=== PATIENT | male | born 1970 | race Caucasian/White ===

== ENCOUNTER 2018-09-26 11:27 | Inpatient (IN) ==
[2018-09-26] MEDS ORDERED: SODIUM CHLORIDE 0.9% 1000ML 1,000 ML IV SCH (12:00)
[2018-09-26 12:18] LABS: Appearance Urine Turbid (Clear); Bacteria Urine Automated Negative (Negative); Blood Urine 3+ (Negative); Epithelial Cell Urine Auto >30 /lpf (0-5); Glucose Urine UA 3+ (Negative); Ketones Urine Trace (Negative); Leukocyte Esterase Urine Trace (Negative); Nitrite Urine Positive (Negative); Protein Urine 4+ (Negative); Specific Gravity Urine 1.034 (1.000-1.030); Urobilinogen Urine Negative (Negative); pH Urine 5.5 (4.5-7.5)
[2018-09-26 12:22] LABS: Bilirubin Urine 3+ (Negative)
[2018-09-26 12:23] LABS: Color Urine Amber
[2018-09-26 12:24] LABS: Ictotest Urine Positive (Negative)
[2018-09-26 12:31] LABS: RBC Urine Automated >30 /hpf (0-4)
[2018-09-26 12:32] LABS: Cast Urine Automated >30 /lpf (0-5)
[2018-09-26] MEDS ORDERED: cefTRIAXone SODIUM 1,000 MG/50 ML BAG IV STA (12:48)
[2018-09-26] MEDS ORDERED: IBUPROFEN 200 MG TAB PO STA (12:48)
--- NOTE | 2018-09-26 13:07 | XRay Report ---
XR chest 1V portable HISTORY: 48 years-old Male eval for pna acute shortness of breath with cough and wheezing COMPARISON: None available TECHNIQUE: Portable AP view the chest FINDINGS: Cardiac silhouette appears to be within upper limits of normal in size, possibly projectional. No pne umothorax, pleural effusion, focal airspace consolidation or overt pulmonary edema. Degenerative phillips ges of the shoulders and spine. Mid thoracic dextroscoliosis. IMPRESSION: No acute process. The above report was generated using voice recognition software. It may contain grammatical, syntax o r spelling errors. Electronically signed by: Monty Weller M.D. 09/26/2018 1:06 PM
[2018-09-26 13:15] LABS: Hematocrit (blood only) 39.7 % (42-52); Mean Corpuscular Hgb Conc 35.3 g/dL (32-36); Mean Corpuscular Volume 86.5 fL (80-100); RDW Coefficient of Variation 13.5 % (11.5-14.5); Red Blood Count 4.59 M/uL (4.7-6.1); White Blood Count 4.53 K/uL (4.8-10.8)
[2018-09-26 13:31] LABS: Platelet Count 40 K/uL (130-400)
[2018-09-26 13:32] LABS: Albumin Globulin Ratio 0.6 (0.9-2); Albumin Level 2.3 gm/dl (3.4-5.0); BUN Creatinine Ratio 12.6 (10-20); Bilirubin,Total 5.2 mg/dl (0.2-1); Calcium 8.8 mg/dl (8.5-10.1); Creatinine Clr Calc Pharmacy 51.2 ml/min; Est GFR (African American) 44.8; Est GFR (Non-African American) 38.6; Globulin 4.2 gm/dl (2.5-4.0); Total Protein 6.5 gm/dl (6.4-8.2)
[2018-09-26 13:44] LABS: Potassium 4.2 mmol/L (3.5-5.1)
[2018-09-26] MEDS ORDERED: DOXYCYCLINE HYCLATE 100 MG in DEXTROSE 5% 100 ML IV STA (13:50)
[2018-09-26 13:53] LABS: Basophils # (auto) 0.03 K/uL (0-0.2); Basophils % (auto) 0.7 %; Lymphocytes % (auto) 13.2 %; Monocytes # (auto) 0.25 K/uL (0.11-0.59); Monocytes % (auto) 5.5 %; Neutrophils # (auto) 3.65 K/uL (1.4-6.5); Neutrophils % (auto) 80.6 %; Platelet Estimate Decreased (Normal)
--- NOTE | 2018-09-26 14:38 | CT Scan Report ---
ABDOMEN AND PELVIS CT WITHOUT CONTRAST CT DOSE: 802.08 mGy.cm HISTORY: Acute abdominal pain ABD pain TECHNIQUE: Multiaxial CT images of the abdomen and pelvis were performed without contrast. A dose lo wering technique was utilized adhering to the principles of ALARA. COMPARISON STUDY: Chest radiograph of same day FINDINGS: Mild cardiac megaly with trace pericardial effusion. Mildly prominent subcarinal and bilateral hilar lymph nodes. Bibasilar groundglass opacities are partially imaged. No pleural effusion. No pneumatosi s or pneumoperitoneum. Liver is mildly enlarged. Trace perihepatic ascites. Evaluation of the solid abdominal organs is limi deirdre without the use of IV contrast. Spleen is mildly enlarged, 14.0 cm. There is mild amount of infla mmatory stranding about the pancreatic head and proximal duodenum with trace free fluid extending int o the mesentery. Moderate wall thickening of the duodenum is also noted. Adrenal glands are unremarka ble. Mild nonspecific bilateral perinephric stranding. No renal or ureteral calculi or obstructive ur opathy. Mild prostamegaly with partial distention of the bladder and mild circumferential urinary abraham dder wall thickening. No aortic aneurysm. Scattered prominent nonenlarged periaortic lymph nodes. Mil dly enlarged left inguinal lymph node, 1.2 cm. Debris-filled distal esophagus which is mild wall thickening. No bowel obstruction. Terminal ileum a nd appendix appear normal. Soft tissues are unremarkable. Bones appear to be intact. Degenerative margaret nges of the spine, pelvis and hips. IMPRESSION: 1. Moderate circumferential wall thickening of the proximal duodenum with mild adjacent inflammatory stranding and trace free fluid. Additional edema surrounds the pancreatic head and uncinate process. This finding likely represents a primary duodenitis or alternatively may reflect reactive change from a primary pancreatitis. Currently with lipase level and clinical exam. 2. Bibasilar groundglass densities suggest infectious or inflammatory pneumonitis. 3. Mildly prominent hilar and subcarinal adenopathy, likely reactive. 4. Cardiomegaly with trace pericardial effusion. 5. Prostamegaly with urinary bladder wall thickening suggestive of chronic bladder outlet obstruction . 6. Splenomegaly. 7. Additional findings as above. Electronically signed by: Monty Weller M.D. 09/26/2018 2:37 PM
[2018-09-26] MEDS ORDERED: ACETAMINOPHEN 500 MG TAB PO STA (15:52)
--- NOTE | 2018-09-26 16:26 | History & Physical Report ---
Date of Service September 26, 2018 Assessment & Plan (1) Sepsis: This is a 48yo M with a PMH of DM I on insulin pump and HTN who presents with abdominal bloating, fever and fatigue x 4 days and was found to have sepsis 2/2 suspected anaplasmosis and possible UTI. -Febrile at 39.2 C and tachycardic at 127 -Suspected anaplasmosis, possible UTI -Leukopenia in setting of anaplasmosis. Lactate within normal limits -Blood and urine cultures pending -Started empirically on Rocephin and doxy (2) Anaplasmosis: History of tick bites, most recently at the beginning of July -Leukopenic at 4.5 and thrombocytopenic at 40 -Peripheral blood smear with rare inclusion suspicious for anaplasma -Anaplasma DNA and ehlrlichia serology ordered as well as blood and urine cultures -Transaminitis, acute kidney injury and diffuse inflammation on CT abd/pelvis including possible duodenitis, pancreatitis, infectious or inflammatory pneumonitis, mildly prominent hilar and subcarinal adenopathy, likely reactive, cardiomegaly with trace pericardial effusion and splenomegaly. -Continue Doxycycline. Follow serology -ID consult (3) Transaminitis: Tbili of 5.2 with direct bili 4.1, indicating conjugated etiology -AST 137, ALT: 177, Alk phos: 506 (normal LFTS as of Nov 2017). INR wnl -Likely due to anaplasmosis but need to evaluate for other causes -GB ultrasound with no acute sonographic abnormality is identified in the right upper quadrant. No gallstones are seen. Hepatomegaly and hepatic steatosis. -Discussed with GI: Acute hepatitis panel, RANDAL, AMA, ASMA ordered -GI to evaluate patient tomorrow AM (4) Complicated UTI (urinary tract infection): UA with trace nitrate and leuk esterase -No urinary symptoms -CT abd/pelvis with mind non-specific perinephric stranding -Treat empirically with Rocepin, follow cultures (5) EUSEBIA (acute kidney injury): Cr elevated at 2.01 (baseline Cr low-mid 1s) -In setting of anaplasmosis, poor PO intake -IV fluids. Avoid nephrotoxic agents -Monitor BMP (6) Type 1 diabetes: Ordered a1c -Has insulin pump at home -Glycemic consult for pump management (7) HTN (hypertension): Mildly elevated BP -Holding losartan in setting of EUSEBIA -Will add PRN agent (8) Allergic rhinitis: Singulair, Zyrtec, Flonase DVT Ppx: SCDs in setting of acute thrombocytopenia Code status: FULL PCP: Akash Dispo: Admitted to telemetry. Plan to return home once medically stable. Patient seen in collaboration with Dr. Nolan. Please see addendum. History of Present Illness Chief Complaint: abdominal bloating , fatigue Primary Care Provider: Ziyad Bustos MD This is a 48yo M with a PMH of DM I on insulin pump and HTN who presents with abdominal bloating, fever and fatigue x 4 days. Patient was in normal state of health until this past Sunday, when he developed abdominal bloating, subjective fever and chills and fatigue. Denies any kendall abdominal pain but just feels a fullness. Has had bowel movements but they have been smaller than normal. Poor p.o. intake and reduced appetite. In the past 3 days, endorses 2 episodes of bilious vomit. Denies any hematemesis, melena or hematochezia. Does live in the [facility] and endorses multiple tick bites, the most recent occurring at the beginning of July. Denies rash, but states that when nursing evaluated him today they noticed a rash on his lower extremities. Denies any history of liver disease or gallbladder disease. Denies lightheadedness, headache, chest pain, palpitations, shortness of breath, abdominal pain, dysuria, hematuria or constipation. Patient found to be febrile at 39 C and tachycardic at 127. Platelets low at 40, creatinine elevated at 2.01 (baseline mid-1s), tbili of 5.2, AST of 137, ALT of 177, alk phos of 506. Lipase wnl. Peripheral blood smear with rare inclusion suspicious for anaplasma. Anaplasma DNA and ehlrlichia serology ordered as well as blood and urine cultures. Started on Rocephin and doxy in the ED. CT abd/pelvis with diffuse inflammation including evidence of piossible duodenitis, pancreatitis, infectious or inflammatory pneumonitis, mildly prominent hilar and subcarinal adenopathy, likely reactive, cardiomegaly with trace pericardial effusion and splenomegaly. Allergies Allergy/AdvReac Type Severity Reaction Status Date / Time Penicillins Allergy Severe Hives Unverified 09/26/18 12:26 Home Medications Home Medications Medication Instructions Recorded Confirmed Type acetaminophen [Tylenol] 325 mg PO Q6H PRN 09/26/18 09/26/18 History apple cider vinegar 0 mg PO QAM 09/26/18 09/26/18 History benzonatate [Tessalon Perles] 100 mg PO TID PRN 09/26/18 09/26/18 History cetirizine [Zyrtec] 10 mg PO DAILY PRN 09/26/18 09/26/18 History fluticasone propionate [Flonase 2 spray INTRANASAL DAILY 09/26/18 09/26/18 History Allergy Relief] losartan 100 mg PO DAILY 09/26/18 09/26/18 History montelukast 10 mg PO QAM 09/26/18 09/26/18 History multivitamin 1 tab PO QAM 09/26/18 09/26/18 History ondansetron HCl [Zofran] 4 mg PO Q8H PRN 09/26/18 09/26/18 History simvastatin 20 mg PO PM 09/26/18 09/26/18 History subcutaneous insulin pump [M[employer]Med 09/26/18 09/26/18 History 530G Insulin Pump] Past Med/Surg History Medical History Allergic rhinitis (Chronic) HTN (hypertension) (Chronic) Insulin dependent diabetes mellitus (Chronic) Surgical History H/O eye surgery (Chronic) Family History Other Colorectal cancer Coronary heart disease Cisse syndrome Social History Preferred Language: Ukrainian Communication Ability: Effective Long Lines Operator Required: No Beliefs That Will Affect Care: None Current Living Situation: Spouse Other Information That Helps Us Care for You: No Feels Safe at Home: Yes Safety Concerns: Feels Safe At This Time Smoking Status: Never smoker Hx Alcohol Use: Yes Alcohol type: beer Alcohol Intake Frequency Comment: 3x / week Hx Substance Use: No Review of Systems Review of Systems: At least ten systems reviewed and negative except as noted in the HPI. Physical Exam Physical Exam: General Appearance: WD/WN, no apparent distress, appears acutely ill Head: normocephalic, atraumatic Eyes: normal inspection, non-injected sclera, PERRL, EOMI ENT: hearing grossly normal, pharynx normal (dry mucous membranes) Neck: supple, no JVD, no adenopathy Respiratory/Chest: lungs clear to auscultation. No wheezes, rales or rhonci. No respiratory distress or accessory muscle use Cardiovascular: tachycardic, regular rhythm, no murmur, normal peripheral pulses, no BLE edema Abdomen/GI: normal bowel sounds, distended but soft, non-tender to palpation, no guarding Extremities/Musculoskelatal: normal inspection, no calf tenderness, normal capillary refill, no pedal edema Neurologic/Psych: alert, normal mood/affect, oriented x 3 Skin: normal color, warm/dry. BLE with petechial rash. No edema or open wounds. Results & Data Vital Signs (Past 12 Hours) Vital Signs Temp Pulse Resp BP Pulse Ox 09/26/18 15:40 39.2 C H 124 H 31 H 97 09/26/18 15:31 128 H 25 H 98 09/26/18 15:30 129 H 25 H 163/91 H 97 09/26/18 15:20 125 H 28 H 97 09/26/18 15:10 126 H 33 H 97 09/26/18 15:01 126 H 19 98 09/26/18 15:00 125 H 20 171/96 H 97 09/26/18 14:50 123 H 30 H 97 09/26/18 14:40 123 H 30 H 97 09/26/18 14:31 122 H 26 H 98 09/26/18 14:30 123 H 29 H 165/91 H 97 09/26/18 14:28 129 H 17 09/26/18 14:10 124 H 28 H 97 09/26/18 14:01 126 H 24 98 09/26/18 14:00 124 H 32 H 155/90 H 98 09/26/18 13:50 123 H 20 168/94 H 90 09/26/18 13:30 123 H 27 H 94 09/26/18 13:01 130 H 18 92 09/26/18 13:00 130 H 25 H 144/88 H 94 09/26/18 12:40 125 H 28 H 94 09/26/18 12:39 124 H 26 H 93 09/26/18 12:34 39.3 C H 126 H 27 H 131/82 94 09/26/18 12:28 123 H 29 H 92 09/26/18 11:36 38.2 C H 127 H 18 166/94 H 94 Laboratory Results Short CBC 09/26/18 Range/Units 12:38 WBC 4.53 L (4.8-10.8) K/uL Hgb 14.0 (14.0-18.0) g/dL Hct 39.7 L (42-52) % Plt Count 40 L (130-400) K/uL BMP 09/26/18 12:38 Sodium 134 L Potassium 4.2 Chloride 100 Carbon Dioxide 26 BUN 25 H Creatinine 2.01 H Glucose 224 H Calcium 8.8 Liver Function 09/26/18 09/26/18 Range/Units 12:38 12:38 Total Bilirubin 5.2 H (0.2-1) mg/dl Direct Bilirubin 4.1 H (0-0.2) mg/dl AST 137 H (15-37) U/L ALT 177 H (12-78) U/L Alkaline Phosphatase 506 H (45-117) U/L Albumin 2.3 L (3.4-5.0) gm/dl Urine 09/26/18 Range/Units 11:56 Urine Color [place] Urine Appearance Turbid A (Clear) Urine pH 5.5 (4.5-7.5) Ur Specific [place] 1.034 H (1.000-1.030) Urine Protein 4+ H (Negative) Urine Glucose (UA) 3+ H (Negative) Diagnostic Findings CXR: IMPRESSION: No acute process. CT abd/pelvis: IMPRESSION: 1. Moderate circumferential wall thickening of the proximal duodenum with mild adjacent inflammatory stranding and trace free fluid. Additional edema surrounds the pancreatic head and uncinate process. This finding likely represents a primary duodenitis or alternatively may reflect reactive change from a primary pancreatitis. Currently with lipase level and clinical exam. 2. Bibasilar ground glass densities suggest infectious or inflammatory pneumonitis. 3. Mildly prominent hilar and subcarinal adenopathy, likely reactive. 4. Cardiomegaly with trace pericardial effusion. 5. Prostamegaly with urinary bladder wall thickening suggestive of chronic bladder outlet obstruction. 6. Splenomegaly. 7. Additional findings as above. Gallbladder ultrasound: IMPRESSION: 1. No acute sonographic abnormality is identified in the right upper quadrant. No gallstones are seen. 2. Hepatomegaly and hepatic steatosis. ECG Rhythm: sinus tachycardia Supervising Physician Co-Signing Physician Notes Patient is a 48-year-old male with history of type 1 diabetes mellitus and other problems presents with history of abdominal bloating, fever and generalized weakness since 4 days duration. Reports chronic dry cough which is unchanged. States having poor oral intake, appetite secondary to abdominal bloating. Also reports 2 episodes of nausea, vomiting. He noticed petechial rash on bilateral lower extremities today. Denies any recent tick bite. Denies any chest pain, shortness of breath, dysuria, hematuria, diarrhea. Patient was found to be febrile, tachycardic, tachypneic. Labs suggestive of thrombocytopenia, leukopenia. EUSEBIA, creatinine elevated at 2.01. Normal lactate levels. UA is abnormal. Labs also suggestive of transaminitis. Peripheral blood smear suggestive of Anaplasmosis. Serology currently pending. Normal lipase levels. CT abdomen suggestive of diffuse inflammatory findings suggestive of possible duodenitis, pancreatitis, pneumonitis, hepatosplenomegaly, reactive lymphadenopathy, perinephric stranding. On exam patient is obese, no apparent distress, normocephalic atraumatic, lungs-decreased breath sounds, clear to auscultation, S1-S2, tachycardia, abdomen soft, distended, nontender, no pedal e [place], particular rash on bilateral lower extremities. Patient is admitted for management of anaplasmosis. Plan to start on doxycycline. Also to rule out UTI. Empirically started on Rocephin. Agree with IV fluids, holding losartan due to EUSEBIA. Check A1c. Also check hepatitis panel, RANDAL, AMA, ASMA. GI and ID consulted. Follow-up cultures. I personally reviewed the record. Patient is interviewed and examined at bedside. Patient's care is coordinated with Irasema Brock PA-C. Please refer to the documentation above for details of patient's presentation and for discussion of other issues.
--- NOTE | 2018-09-26 17:10 | Emergency Department Note ---
Entered by Andreina Johnson acting as a scribe for Bautista Lewis MD History of Present Illness General Chief complaint: Abdominal Pain Stated complaint: STOMACH PROBLEM,SLEEPING 12-14 HRS, NO ENERGY Source: patient and family (spouse) History of Present Illness Provider complaint: abdominal pain Onset (ago): day(s) Location: abdomen Pain Consistency: + constant Maximum Pain Intensity: 5 Quality: + dull Relieved By: + medication (nausea medication) Associated symptoms: + denies other symptoms (diarrhea, nose bleed, bruising, bloody stools), + fever/chills (fever) and + nausea/vomiting The patient is a 48 year old male who presents to the Emergency department with complaints of constant abdominal pain. The patient states that he has had a dull feeling stomach ache that started 3 days ago. He reports that he has been vomiting but has not had diarrhea. He also reports that his temperature has been at 99.4 and states that he feels febrile when the Tylenol wears off. The patient states that he has also had an intermittent headache. He states that he has not been able to eat much over the last several days. He also reports that he has not had a bowel movement in several days which is unusual for him. He states that he was given nausea medication that helped to alleviate his symptoms. Per spouse, the patient sleeps 14-16 hours per day for years, but has worsened within the past 2 months. The patient states that he had lab work done a few days prior at [facility] and his platelet count was extremely low. The patient denies bruising, nose bleed, and black or bloody stool. The patient reports that he is treated for hypertension and diabetes. Home Medications Home Medications Medication Instructions Recorded Confirmed Type acetaminophen [Tylenol] 325 mg PO Q6H PRN 09/26/18 09/26/18 History apple cider vinegar 0 mg PO QAM 09/26/18 09/26/18 History benzonatate [Tessalon Perles] 100 mg PO TID PRN 09/26/18 09/26/18 History cetirizine [Zyrtec] 10 mg PO DAILY PRN 09/26/18 09/26/18 History fluticasone propionate [Flonase 2 spray INTRANASAL DAILY 09/26/18 09/26/18 History Allergy Relief] losartan 100 mg PO DAILY 09/26/18 09/26/18 History montelukast 10 mg PO QAM 09/26/18 09/26/18 History multivitamin 1 tab PO QAM 09/26/18 09/26/18 History ondansetron HCl [Zofran] 4 mg PO Q8H PRN 09/26/18 09/26/18 History simvastatin 20 mg PO PM 09/26/18 09/26/18 History subcutaneous insulin pump [MiniMed 09/26/18 09/26/18 History 530G Insulin Pump] Allergies Allergy/AdvReac Type Severity Reaction Status Date / Time Penicillins Allergy Severe Hives Unverified 09/26/18 12:26 Past Med/Surg History Social History Current Living Situation: Spouse Feels Safe at Home: Yes Smoking Status: Former smoker Hx Alcohol Use: Yes Alcohol type: beer Alcohol Intake Frequency Comment: 3x / week Hx Substance Use: No Review of Systems See HPI for pertinent positives & negatives. and A total of 10 systems reviewed and were otherwise negative Physical Exam Vital Signs Vital Signs - 24 hr 09/26/18 11:36 09/26/18 12:28 09/26/18 12:34 Temperature 38.2 C H 39.3 C H Temperature Source Oral Sepsis Recent Fever Within 48 Hours No Sepsis New/Unexplained Change in Mental Status No Sepsis Action Taken by Nursing No Action Required Pulse Rate 127 H 123 H 126 H Pulse Rate from SpO2 Sensor 125 H Pulse Rhythm Irregular Respiratory Rate 18 29 H 27 H Blood Pressure 166/94 H 131/82 Blood Pressure Mean 118 98 Pulse Oximetry 94 92 94 Oxygen Delivery Method Room Air 09/26/18 12:39 09/26/18 12:40 09/26/18 13:00 Temperature Temperature Source Sepsis Recent Fever Within 48 Hours Sepsis New/Unexplained Change in Mental Status Sepsis Action Taken by Nursing Pulse Rate 124 H 125 H 130 H Pulse Rate from SpO2 Sensor 125 H 124 H 131 H Pulse Rhythm Respiratory Rate 26 H 28 H 25 H Blood Pressure 144/88 H Blood Pressure Mean 106 Pulse Oximetry 93 94 94 Oxygen Delivery Method 09/26/18 13:01 09/26/18 13:30 09/26/18 13:50 Temperature Temperature Source Sepsis Recent Fever Within 48 Hours Sepsis New/Unexplained Change in Mental Status Sepsis Action Taken by Nursing Pulse Rate 130 H 123 H 123 H Pulse Rate from SpO2 Sensor 131 H 123 H 125 H Pulse Rhythm Respiratory Rate 18 27 H 20 Blood Pressure 168/94 H Blood Pressure Mean 118 Pulse Oximetry 92 94 90 Oxygen Delivery Method 09/26/18 14:00 09/26/18 14:01 09/26/18 14:10 Temperature Temperature Source Sepsis Recent Fever Within 48 Hours Sepsis New/Unexplained Change in Mental Status Sepsis Action Taken by Nursing Pulse Rate 124 H 126 H 124 H Pulse Rate from SpO2 Sensor 125 H 125 H 122 H Pulse Rhythm Respiratory Rate 32 H 24 28 H Blood Pressure 155/90 H Blood Pressure Mean 111 Pulse Oximetry 98 98 97 Oxygen Delivery Method 09/26/18 14:28 09/26/18 14:30 09/26/18 14:31 Temperature Temperature Source Sepsis Recent Fever Within 48 Hours Sepsis New/Unexplained Change in Mental Status Sepsis Action Taken by Nursing Pulse Rate 129 H 123 H 122 H Pulse Rate from SpO2 Sensor 123 H 121 H Pulse Rhythm Respiratory Rate 17 29 H 26 H Blood Pressure 165/91 H Blood Pressure Mean 115 Pulse Oximetry 97 98 Oxygen Delivery Method 09/26/18 14:40 09/26/18 14:50 09/26/18 15:00 Temperature Temperature Source Sepsis Recent Fever Within 48 Hours Sepsis New/Unexplained Change in Mental Status Sepsis Action Taken by Nursing Pulse Rate 123 H 123 H 125 H Pulse Rate from SpO2 Sensor 123 H 123 H 124 H Pulse Rhythm Respiratory Rate 30 H 30 H 20 Blood Pressure 171/96 H Blood Pressure Mean 121 Pulse Oximetry 97 97 97 Oxygen Delivery Method 09/26/18 15:01 09/26/18 15:10 09/26/18 15:20 Temperature Temperature Source Sepsis Recent Fever Within 48 Hours Sepsis New/Unexplained Change in Mental Status Sepsis Action Taken by Nursing Pulse Rate 126 H 126 H 125 H Pulse Rate from SpO2 Sensor 127 H 125 H 125 H Pulse Rhythm Respiratory Rate 19 33 H 28 H Blood Pressure Blood Pressure Mean Pulse Oximetry 98 97 97 Oxygen Delivery Method 09/26/18 15:30 09/26/18 15:31 09/26/18 15:40 Temperature 39.2 C H Temperature Source Sepsis Recent Fever Within 48 Hours Sepsis New/Unexplained Change in Mental Status Sepsis Action Taken by Nursing Pulse Rate 129 H 128 H 124 H Pulse Rate from SpO2 Sensor 129 H 128 H 125 H Pulse Rhythm Respiratory Rate 25 H 25 H 31 H Blood Pressure 163/91 H Blood Pressure Mean 115 Pulse Oximetry 97 98 97 Oxygen Delivery Method 09/26/18 16:00 09/26/18 16:01 09/26/18 16:30 Temperature Temperature Source Sepsis Recent Fever Within 48 Hours Sepsis New/Unexplained Change in Mental Status Sepsis Action Taken by Nursing Pulse Rate 121 H 119 H 121 H Pulse Rate from SpO2 Sensor 121 H 120 H 122 H Pulse Rhythm Respiratory Rate 26 H 24 26 H Blood Pressure 144/84 H 146/86 H Blood Pressure Mean 104 106 Pulse Oximetry 96 96 96 Oxygen Delivery Method 09/26/18 16:31 Temperature Temperature Source Sepsis Recent Fever Within 48 Hours Sepsis New/Unexplained Change in Mental Status Sepsis Action Taken by Nursing Pulse Rate 121 H Pulse Rate from SpO2 Sensor 121 H Pulse Rhythm Respiratory Rate 20 Blood Pressure Blood Pressure Mean Pulse Oximetry 97 Oxygen Delivery Method Constitutional: Vital signs reviewed. Eyes: Pupils are equal round reactive to light. Conjunctiva are noninjected. ENT: Pharynx is clear without erythema or exudate. Mucous membranes are moist. Neck supple without meningeal signs. Respiratory: Clear to auscultation bilaterally. Breath sounds are equal bilaterally. Cardiovascular: Tachycardic rate and regular rhythm. No rubs or gallops. GI: Soft and nontender. Distended. Bowel sounds are present. Insulin pump in place. Musculoskeletal: No peripheral edema. No lower extremity tenderness. Integumentary: No cyanosis. Neurological: The patient is awake and alert. No focal deficits. Psychiatric: Normal affect. Course 1145: The patient was evaluated in room. A history and physical were performed. 1200: The patient had blood work done on the which showed that he had a creatinine of 1.6, a platelet count of 31, and a negative Lyme test. 1250: I checked on the patient. He is now febrile and coughing. I talked to him about his UTI. 1314: I reassessed the patient. I talked to him and his about his test results. 1456: I updated the patient who verbalized agreement and understanding of the treatment plan. 1458: I discussed the patient's case with Irasema Durant, admitting to Dr. Nolan, who will evaluate the patient for further management. Consultations Consultation #1: Irasema Durant Time: 14:58 Administered Medications Discontinued Medications Acetaminophen (Tylenol) 500 mg PO NOW STA Stop: 09/26/18 15:53 Last Admin: 09/26/18 15:59 Dose: 500 mg Documented by: [id number] Sodium Chloride (Nss 1000ml) 1,000 mls @ 999 mls/hr IV .Q1H1M LAMONTE Stop: 09/26/18 13:00 Last Infusion: 09/26/18 15:56 Dose: 0 mls/hr Documented by: [id number] Admin: 09/26/18 12:47 Dose: 999 mls/hr Documented by: [id number] Ceftriaxone Sodium (Rocephin) 1,000 mg in 50 mls @ 100 mls/hr IV NOW STA Stop: 09/26/18 13:17 Last Infusion: 09/26/18 13:59 Dose: 0 mls/hr Documented by: [id number] Admin: 09/26/18 13:30 Dose: 100 mls/hr Documented by: [id number] Doxycycline Hyclate 100 mg/ (Dextrose) 110 mls @ 50 mls/hr IV NOW STA Stop: 09/26/18 16:01 Last Admin: 09/26/18 15:15 Dose: 50 mls/hr Documented by: [id number] Ibuprofen (Advil) 200 mg PO NOW STA Stop: 09/26/18 12:49 Last Admin: 09/26/18 13:30 Dose: 200 mg Documented by: [id number] Medical Decision Making Differential Diagnosis Differentials include bowel obstruction, gastritis, pancreatitis, TTP, irritable bowel syndrome and anemia. Medical Records Attestation: I reviewed the patient's medical records. Home Medications Current Medication List: was personally reviewed by me Laboratory Data Attestation: I reviewed the patient's lab results. Result diagrams: 09/26/18 12:38 09/26/18 12:38 Lab Results 09/26/18 09/26/18 09/26/18 Range/Units 11:56 11:56 12:38 WBC (4.8-10.8) K/uL RBC (4.7-6.1) M/uL Hgb (14.0-18.0) g/dL Hct (42-52) % MCV (80-100) fL MCH (25-34) pg MCHC (32-36) g/dL RDW Std Deviation (36.4-46.3) fL RDW Coeff of Negr[place] (11.5-14.5) % Plt Count (130-400) K/uL Immature Gran % (Auto) % Neut % (Auto) % Lymph % (Auto) % [place] % (Auto) % Eos % (Auto) % Baso % (Auto) % Immature Gran # (Auto) (0.00-0.02) K/uL Neut # (Auto) (1.4-6.5) K/uL Lymph # (Auto) (1.2-3.4) K/uL [place] # (Auto) (0.11-0.59) K/uL Eos # (Auto) (0-0.5) K/uL Baso # (Auto) (0-0.2) K/uL Blood Smear Review Platelet Estimate (Normal) PT (9.0-12.0) Seconds INR (0.9-1.1) Sodium 134 L (136-145) mmol/L Potassium 4.2 (3.5-5.1) mmol/L Chloride 100 (98-107) mmol/L Carbon Dioxide 26 (21-32) mmol/L Anion Gap 8.0 (3-11) BUN 25 H (7-18) mg/dl Creatinine 2.01 H (0.6-1.4) mg/dl Est Cr Clr Drug Dosing 51.2 ml/min Est GFR ( Amer) 44.8 Est GFR (Non-Af Amer) 38.6 BUN/Creatinine Ratio 12.6 (10-20) Glucose 224 H (70-99) mg/dl POC Lactic Acid Dileep (0.90-1.70) mmol/L Calcium 8.8 (8.5-10.1) mg/dl Total Bilirubin 5.2 H (0.2-1) mg/dl Direct Bilirubin (0-0.2) mg/dl AST 137 H (15-37) U/L ALT 177 H (12-78) U/L Alkaline Phosphatase 506 H (45-117) U/L Total Protein 6.5 (6.4-8.2) gm/dl Albumin 2.3 L (3.4-5.0) gm/dl Globulin 4.2 H (2.5-4.0) gm/dl Albumin/Globulin Ratio 0.6 L (0.9-2) Lipase 83 (73-393) U/L Urine Color Genesis Urine Appearance Turbid A (Clear) Urine pH 5.5 (4.5-7.5) POC Urine pH 5 (4.5-7.5) Ur Specific [place] 1.034 H (1.000-1.030) Urine Protein 4+ H (Negative) POC Urine Protein 3+ H (Negative) Urine Glucose (UA) 3+ H (Negative) POC Ur Glucose (UA) 1000 H (Normal) Urine Ketones Trace H (Negative) POC Urine Ketones Negative (Negative) Urine Blood 3+ H (Negative) POC Urine Blood 250 H (Negative) Urine Nitrite Positive A (Negative) POC Urine Nitrite Negative (Negative) Urine Bilirubin 3+ H (Negative) POC Urine Bilirubin 3+ H (Negative) Urine Urobilinogen Negative (Negative) POC Urine Urobilinogen 8 H (Normal) Ur Leukocyte Esterase Trace H (Negative) POC U Leukocyte Esteras Trace H (Negative) Urine WBC (Auto) 10-30 H (0-5) /hpf Urine RBC (Auto) >30 H (0-4) /hpf U Hyaline Cast (Auto) >30 H (0-5) /lpf U Epithel Cells (Auto) >30 H (0-5) /lpf Urine Bacteria (Auto) Negative (Negative) Ur Renal Epithelial Cell Not Reportable Granular Casts 10-20 H (0) /lpf Urine Yeast Not Reportable 09/26/18 09/26/18 09/26/18 Range/Units 12:38 12:38 12:38 WBC 4.53 L (4.8-10.8) K/uL RBC 4.59 L (4.7-6.1) M/uL Hgb 14.0 (14.0-18.0) g/dL Hct 39.7 L (42-52) % MCV 86.5 (80-100) fL MCH 30.5 (25-34) pg MCHC 35.3 (32-36) g/dL RDW Std Deviation 43.0 (36.4-46.3) fL RDW Coeff of [place]grito 13.5 (11.5-14.5) % Plt Count 40 L (130-400) K/uL Immature Gran % (Auto) 0.0 % Neut % (Auto) 80.6 % Lymph % (Auto) 13.2 % [place] % (Auto) 5.5 % Eos % (Auto) 0.0 % Baso % (Auto) 0.7 % Immature Gran # (Auto) 0.00 (0.00-0.02) K/uL Neut # (Auto) 3.65 (1.4-6.5) K/uL Lymph # (Auto) 0.60 L (1.2-3.4) K/uL [place] # (Auto) 0.25 (0.11-0.59) K/uL Eos # (Auto) 0.00 (0-0.5) K/uL Baso # (Auto) 0.03 (0-0.2) K/uL Blood Smear Review Platelet Estimate Decreased L (Normal) PT 10.0 (9.0-12.0) Seconds INR 1.0 (0.9-1.1) Sodium (136-145) mmol/L Potassium (3.5-5.1) mmol/L Chloride (98-107) mmol/L Carbon Dioxide (21-32) mmol/L Anion Gap (3-11) BUN (7-18) mg/dl Creatinine (0.6-1.4) mg/dl Est Cr Clr Drug Dosing ml/min Est GFR ( Amer) Est GFR (Non-Af Amer) BUN/Creatinine Ratio (10-20) Glucose (70-99) mg/dl POC Lactic Acid Dileep (0.90-1.70) mmol/L Calcium (8.5-10.1) mg/dl Total Bilirubin (0.2-1) mg/dl Direct Bilirubin 4.1 H (0-0.2) mg/dl AST (15-37) U/L ALT (12-78) U/L Alkaline Phosphatase (45-117) U/L Total Protein (6.4-8.2) gm/dl Albumin (3.4-5.0) gm/dl Globulin (2.5-4.0) gm/dl Albumin/Globulin Ratio (0.9-2) Lipase (73-393) U/L Urine Color Urine Appearance (Clear) Urine pH (4.5-7.5) POC Urine pH (4.5-7.5) Ur Specific [place] (1.000-1.030) Urine Protein (Negative) POC Urine Protein (Negative) Urine Glucose (UA) (Negative) POC Ur Glucose (UA) (Normal) Urine Ketones (Negative) POC Urine Ketones (Negative) Urine Blood (Negative) POC Urine Blood (Negative) Urine Nitrite (Negative) POC Urine Nitrite (Negative) Urine Bilirubin (Negative) POC Urine Bilirubin (Negative) Urine Urobilinogen (Negative) POC Urine Urobilinogen (Normal) Ur Leukocyte Esterase (Negative) POC U Leukocyte Esteras (Negative) Urine WBC (Auto) (0-5) /hpf Urine RBC (Auto) (0-4) /hpf U Hyaline Cast (Auto) (0-5) /lpf U Epithel Cells (Auto) (0-5) /lpf Urine Bacteria (Auto) (Negative) Ur Renal Epithelial Cell Granular Casts (0) /lpf Urine Yeast 09/26/18 Range/Units 13:19 WBC (4.8-10.8) K/uL RBC (4.7-6.1) M/uL Hgb (14.0-18.0) g/dL Hct (42-52) % MCV (80-100) fL MCH (25-34) pg MCHC (32-36) g/dL RDW Std Deviation (36.4-46.3) fL RDW Coeff of [place]grito (11.5-14.5) % Plt Count (130-400) K/uL Immature Gran % (Auto) % Neut % (Auto) % Lymph % (Auto) % [place] % (Auto) % Eos % (Auto) % Baso % (Auto) % Immature Gran # (Auto) (0.00-0.02) K/uL Neut # (Auto) (1.4-6.5) K/uL Lymph # (Auto) (1.2-3.4) K/uL [place] # (Auto) (0.11-0.59) K/uL Eos # (Auto) (0-0.5) K/uL Baso # (Auto) (0-0.2) K/uL Blood Smear Review Platelet Estimate (Normal) PT (9.0-12.0) Seconds INR (0.9-1.1) Sodium (136-145) mmol/L Potassium (3.5-5.1) mmol/L Chloride (98-107) mmol/L Carbon Dioxide (21-32) mmol/L Anion Gap (3-11) BUN (7-18) mg/dl Creatinine (0.6-1.4) mg/dl Est Cr Clr Drug Dosing ml/min Est GFR ( Amer) Est GFR (Non-Af Amer) BUN/Creatinine Ratio (10-20) Glucose (70-99) mg/dl POC Lactic Acid Dileep 1.54 (0.90-1.70) mmol/L Calcium (8.5-10.1) mg/dl Total Bilirubin (0.2-1) mg/dl Direct Bilirubin (0-0.2) mg/dl AST (15-37) U/L ALT (12-78) U/L Alkaline Phosphatase (45-117) U/L Total Protein (6.4-8.2) gm/dl Albumin (3.4-5.0) gm/dl Globulin (2.5-4.0) gm/dl Albumin/Globulin Ratio (0.9-2) Lipase (73-393) U/L Urine Color Urine Appearance (Clear) Urine pH (4.5-7.5) POC Urine pH (4.5-7.5) Ur Specific [place] (1.000-1.030) Urine Protein (Negative) POC Urine Protein (Negative) Urine Glucose (UA) (Negative) POC Ur Glucose (UA) (Normal) Urine Ketones (Negative) POC Urine Ketones (Negative) Urine Blood (Negative) POC Urine Blood (Negative) Urine Nitrite (Negative) POC Urine Nitrite (Negative) Urine Bilirubin (Negative) POC Urine Bilirubin (Negative) Urine Urobilinogen (Negative) POC Urine Urobilinogen (Normal) Ur Leukocyte Esterase (Negative) POC U Leukocyte Esteras (Negative) Urine WBC (Auto) (0-5) /hpf Urine RBC (Auto) (0-4) /hpf U Hyaline Cast (Auto) (0-5) /lpf U Epithel Cells (Auto) (0-5) /lpf Urine Bacteria (Auto) (Negative) Ur Renal Epithelial Cell Granular Casts (0) /lpf Urine Yeast Imaging Data Attestation: I personally reviewed and interpreted this imaging study as follows: Radiologist's Impression: Radiology results as stated below per my review and the radiologist's interpretation: XR chest 1V portable HISTORY: 48 years-old Male eval for pna acute shortness of breath with cough and wheezing COMPARISON: None available TECHNIQUE: Portable AP view the chest FINDINGS: Cardiac silhouette appears to be within upper limits of normal in size, possibly projectional. No pneumothorax, pleural effusion, focal airspace consolidation or overt pulmonary edema. Degenerative changes of the shoulders and spine. Mid thoracic dextroscoliosis. IMPRESSION: No acute process. The above report was generated using voice recognition software. It may contain grammatical, syntax or spelling errors. Electronically signed by: Monty Weller M.D. 09/26/2018 1:06 PM ABDOMEN AND PELVIS CT WITHOUT CONTRAST CT DOSE: 802.08 mGy.cm HISTORY: Acute abdominal pain ABD pain TECHNIQUE: Multiaxial CT images of the abdomen and pelvis were performed without contrast. A dose lowering technique was utilized adhering to the principles of ALARA. COMPARISON STUDY: Chest radiograph of same day FINDINGS: Mild cardiac megaly with trace pericardial effusion. Mildly prominent subcarinal and bilateral hilar lymph nodes. Bibasilar groundglass opacities are partially imaged. No pleural effusion. No pneumatosis or pneumoperitoneum. Liver is mildly enlarged. Trace perihepatic ascites. Evaluation of the solid ab dominal organs is limited without the use of IV contrast. Spleen is mildly enlarged, 14.0 cm. There is mild amount of inflammatory stranding about the pancreatic head and proximal duodenum with trace free fluid extending into the mesentery. Moderate wall thickening of the duodenum is also noted. Adrenal glands are unremarkable. Mild nonspecific bilateral perinephric stranding. No renal or ureteral calculi or obstructive uropathy. Mild prostamegaly with partial distention of the bladder and mild circumferential urinary bladder wall thickening. No aortic aneurysm. Scattered prominent nonenlarged periaortic lymph nodes. Mildly enlarged left inguinal lymph node, 1.2 cm. Debris-filled distal esophagus which is mild wall thickening. No bowel obstruction. Terminal ileum and appendix appear normal. Soft tissues are unremarkable. Bones appear to be intact. Degenerative changes of the spine, pel vis and hips. IMPRESSION: 1. Moderate circumferential wall thickening of the proximal duodenum with mild adjacent inflammatory stranding and trace free fluid. Additional edema surrounds the pancreatic head and uncinate process. This finding likely represents a primary duodenitis or alternatively may reflect reactive change from a primary pancreatitis. Currently with lipase level and clinical exam. 2. Bibasilar groundglass densities suggest infectious or inflammatory pneumonitis. 3. Mildly prominent hilar and subcarinal adenopathy, likely reactive. 4. Cardiomegaly with trace pericardial effusion. 5. Prostamegaly with urinary bladder wall thickening suggestive of chronic bladder outlet obstruction. 6. Splenomegaly. 7. Additional findings as above. Electronically signed by: Monty Weller M.D. 09/26/2018 2:37 PM ECG Data Attestation: I personally reviewed and interpreted this ECG as follows: Indication: tachycardia Rate (beats per minute): 128 Rhythm: sinus tachycardia Findings: no PVC and no ST elevation Blood Pressure Blood Pressure Findings: Elevated blood pressure Blood Pressure Disposition: Referred to patients primary care provider MDM Narrative I did evaluate the patient as noted above. The patient is presenting with fever, vomiting and abdominal pain. His also states that he has had generalized fatigue for 2 years which has worsened over the past 2 months. He did have blood work recently which showed a creatinine of 1.6 and low platelets. IV access was established. I did treated with normal saline IV. He was also given Motrin 400 mg for his fever. The patient was placed on a continuous healthcare customer service. I did order and personally review the patient's 12-lead EKG as described above. He has sinus tachycardia without acute ischemia. I did order and personally reviewed the images of the patient's chest x-ray as described above. There is no evidence of pneumonia. I did order a urine analysis. He does have significant infection. I did order blood cultures. I did treat him with IV ceftriaxone. I did order and review the patient's blood work as noted in the electronic medical record. His white count is 4.5. Creatinine is 2. He is hyperglycemic. Peripheral smear shows inclusion bodies concerning for anapla smosis. Given his elevated transaminases and low platelets anaplasmosis is a consistent diagnosis. I also sent testing for early ketosis and treated patient with IV doxycycline. I did order a CT of the abdomen and pelvis. I did review the images myself as well as the radiology report as described above. He does have some inflammation around his kidneys as well as over his duodenum and pancreatic head. His lipase is normal. I did discuss the test results with the patient. He does state that he is feeling slightly better. I did recommend hospitalization for further care and evaluation. I did discuss the case with the hospitalist and senior case manager. 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), Anaplasmosis Patient Disposition: Being Evaluated by Hospitalist Forms Stand Alone Forms: Call Back Authorization, My [facility] Prescriptions Prescriptions: No Action multivitamin Tablet 1 tab PO QAM RF: 0 acetaminophen [Tylenol] 325 mg Tablet 325 mg PO Q6H PRN (Reason: Pain) RF: 0 simvastatin 20 mg Tablet 20 mg PO PM RF: 0 montelukast 10 mg Tablet 10 mg PO QAM RF: 0 apple cider vinegar 500 mg Tablet PO QAM RF: 0 ondansetron HCl [Zofran] 4 mg Tablet 4 mg PO Q8H PRN (Reason: Nausea) RF: 0 benzonatate [Tessalon Perles] 100 mg Capsule 100 mg PO TID PRN (Reason: Cough) RF: 0 losartan 100 mg Tablet 100 mg PO DAILY RF: 0 fluticasone propionate [Flonase Allergy Relief] 50 mcg/actuation [place],Suspension 2 spray INTRANASAL DAILY RF: 0 MiniMed 530G Insulin Pump Misc RF: 0 Zyrtec 10 mg Capsule 10 mg PO DAILY PRN (Reason: Allergy Symptoms) RF: 0 Referrals Referrals: Ziyad Bustos MD [Primary Care Provider] - The scribe's documentation has been prepared under my direction and personally reviewed by me in its entirety. I confirm that the note above accurately reflects all work, treatment, procedures, and medical decision making performed by me.
--- NOTE | 2018-09-26 17:40 | Ultrasound Report ---
ULTRASOUND RIGHT UPPER QUADRANT ABDOMEN CLINICAL HISTORY: Elevated hepatic transaminases and bilirubin. COMPARISON STUDY: Abdominal CT dated 09/26/2018. TECHNIQUE: Real-time, grayscale, and color flow sonography of the right upper quadrant of the abdomen was performed. Images are reviewed in the transverse and longitudinal planes. FINDINGS: Liver: The liver is enlarged, measuring over 20 cm in length. Hepatic echotexture is heterogeneous an d slightly increased suggesting steatosis There is no intrahepatic biliary ductal dilatation. The sera n portal vein is patent. Gallbladder: The gallbladder is normal in appearance. No gallstones are identified. There is no gallb ladder wall thickening or pericholecystic fluid. A sonographic Cervantes's sign is reportedly absent. Th e common bile duct measures up to 0.3 cm in diameter. Pancreas: Visualized portions of the pancreatic head and body are normal in appearance. The splenic v ein is patent. Right kidney: Survey images of the right kidney demonstrate normal size and echotexture. There is no hydronephrosis. Ascites: None. IMPRESSION: 1. No acute sonographic abnormality is identified in the right upper quadrant. No gallstones are seen . 2. Hepatomegaly and hepatic steatosis. Electronically signed by: Salvador Dooley M.D. 09/26/2018 5:38 PM
[2018-09-26] MEDS ORDERED: LACTATED RINGER'S 500 ML IV ONE (17:43)
[2018-09-26] MEDS ORDERED: POLYETHYLENE (MIRALAX) 17 GM PACK PO PRN (17:43)
[2018-09-26] MEDS ORDERED: ONDANSETRON INJ 2 MG/ML 2 ML VIAL IV PRN (17:43)
[2018-09-26] MEDS ORDERED: CETIRIZINE HCL 10 MG TABLET PO PRN (17:43)
[2018-09-26] MEDS ORDERED: ACETAMINOPHEN 325 MG TAB PO PRN (17:43)
[2018-09-26] MEDS ORDERED: BENZONATATE 100 MG CAPSULE PO PRN (17:43)
[2018-09-26] MEDS ORDERED: PIPERACILL/TAZOBAC CONSULT ACTIVE SCH (18:02)
[2018-09-26] MEDS ORDERED: PHARMACY GLYCEMIC MGMT CONSULT SCH (18:03)
[2018-09-26] MEDS ORDERED: CEFTRIAXONE PHARMACY CONSULT IN PROGRESS SCH (18:30)
[2018-09-26] MEDS ORDERED: cefTRIAXone SODIUM 1,000 MG in DEXTROSE 5% 50 ML IV ONE (18:30)
[2018-09-26] MEDS: LACTATED RINGER'S 1,000 ML IV SCH (18:56)
[2018-09-26 19:31] LABS: Hepatitis B Surface Antigen Neg (Neg)
--- NOTE | 2018-09-26 19:45 | Pharmacy Report ---
Pharmacy Glycemic Short Note 2 - Date of Service September 26, 2018 - Glycemic Short BSG Results (Last 24 hours): 09/26/18 12:38 Glucose 224 H OUTPATIENT ANTIDIABETIC REGIMEN: * Admelog insulin pump settings (per [facility] documentation 08/06/18, pt is unsure of settings): * basal rates: 2371-7766 1.3units/hr; 9763-1219 1.9units/hr; 0367-3557 2.3units/hr * sensitivity factor: 10mg/dL/unit * carb ratio: 1 unit per 7 grams carbs * Average daily dose: 99.1 +/- 10.6 units/day ASSESSMENT: * Type 1 diabetic, admitted today for rash, abd upset, transaminitis, thrombocytopenia, sepsis likely secondary to anaplasmosis * I was initially consulted to convert this patient from insulin pump to SQ regimen due to poor PO intake, however the patient was not agreeable to this plan. He was adamant that he did not desire to do this. Unfortunately he was also not able to provide me with his current pump settings as he did not have his glasses and was not able to read back his pump settings as a result. The above reported settings are based upon documentation at [facility]. * Per prior [facility] records he has a h/o non-compliance and was not covering carbs with carb ratio, rather he was only using sensitivity factor. His sensitivity factor is more aggressive than one would expect for type 1 diabetic. I wonder if this dose was titrated up because of his noncompliance. * As stated, he will not permit us to remove his pump. He was provided with insulin pump agreement. He agreed to document his insulin doses and BSGs on flowsheet along with carb intake. He is aware that we may need to intervene if his glycemic control inadequate. He will permit us to review his insulin doses on flow sheet daily. * He is due for insulin pump site change tomorrow (changes every 3 days), as well as a continuous sensor change tomorrow (changes every 6 days) * His pump reservoir contains ~90 units of insulin at this time, a little less than 24 hrs supply [facility] PLAN FOR INPATIENT GLYCEMIC CONTROL: * Given pt's refusal to stop his insulin pump and use basal/bolus SQ regimen, will monitor pt's ability to self-manage BSGs on his own once daily * Pt will need to have his pump site changed and reservoir refilled tomorrow. Admelog insulin is non-formulary, but Humalog (lispro insulin) would be our closest analogue if pump needs refilled from hospital supply. Pt will need to provide site and reservoir for this exchange. * Accuchek BSG should be checked against his continuous glucose monitor at least once daily to confirm correlation. * BSG should be checked ACHS (nurse review of pt's reading) * Should pt display inability to safely self-manage, convert to basal/bolus regimen based upon total daily insulin dose of ~90-100 units, given 50% basal, 50% prandial. PLAN FOR DISCHARGE: * to be determined. would probably be best managed with [facility] on discharge.
[2018-09-26 19:59] LABS: Hepatitis C IgG 13Yrs+Old_Rflx Neg (Neg)
[2018-09-26] MEDS: MONTELUKAST SODIUM 10 MG TABLET PO SCH (21:21)
[2018-09-26] MEDS ORDERED: cloNIDine HCl 0.1 MG TAB PO PRN (22:36)
[2018-09-26] MEDS ORDERED: CARBOHYDRATES FOR HYPOGLYCEMIA PO PRN (23:45)
[2018-09-26] MEDS ORDERED: GLUCAGON FOR INJ 1 MG VIAL IM PRN (23:45)
[2018-09-26] MEDS ORDERED: GLUCOSE 10 TABS/TUBE PO PRN (23:45)
[2018-09-26] MEDS ORDERED: GLUCOSE 40% GEL 15 GM TUBE PO PRN (23:45)
[2018-09-26] MEDS ORDERED: DEXTROSE 50% 50 ML SYRINGE IV PRN (23:45)
[2018-09-27] MEDS: DOXYCYCLINE HYCLATE 100 MG in DEXTROSE 5% 100 ML IV SCH ×2 (02:51→14:37)
[2018-09-27] MEDS: LACTATED RINGER'S 1,000 ML IV SCH ×2 (04:22→14:37)
[2018-09-27] MEDS ORDERED: cloNIDine HCl 0.1 MG TAB PO ONE (04:44)
[2018-09-27 05:23] LABS: Albumin Level 2.1 gm/dl (3.4-5.0); BUN Creatinine Ratio 12.7 (10-20); Calcium 8.4 mg/dl (8.5-10.1); Creatinine Clr Calc Pharmacy 55.3 ml/min; Est GFR (African American) 49.5; Est GFR (Non-African American) 42.7; Potassium 4.1 mmol/L (3.5-5.1)
[2018-09-27 05:29] LABS: Albumin Globulin Ratio 0.6 (0.9-2); Bilirubin,Total 3.9 mg/dl (0.2-1); Globulin 3.6 gm/dl (2.5-4.0); Total Protein 5.7 gm/dl (6.4-8.2)
[2018-09-27 05:49] LABS: Hematocrit (blood only) 37.7 % (42-52); Hemoglobin 13.1 g/dL (14.0-18.0); Mean Corpuscular Hgb Conc 34.7 g/dL (32-36); Mean Corpuscular Volume 87.1 fL (80-100); Platelet Count 36 K/uL (130-400); RDW Coefficient of Variation 13.7 % (11.5-14.5); RDW Standard Deviation 43.9 fL (36.4-46.3); Red Blood Count 4.33 M/uL (4.7-6.1)
[2018-09-27 05:50] LABS: Platelet Estimate Decreased (Normal)
--- NOTE | 2018-09-27 06:19 | Hospitalist Progress Note ---
Date of Service September 27, 2018 Subjective Made aware by RN of uncontrolled blood pressure. SBP 140-170s the last 24 hours. Patient comfortable as per RN. Losartan on hold given kidney dysfunction on admission as per documentation. AP Hypertensive urgency Initiate Norvasc 2.5 mg p.o. daily while Losartan on hold. Results & Data Vital Signs (Past 12 Hours) Vital Signs Temp Pulse Pulse Resp BP Pulse Ox 09/27/18 06:11 126 H 161/94 H 09/27/18 04:07 37.1 C 112 H 16 171/90 H 91 09/27/18 00:42 116 H 09/26/18 23:55 37.4 C 114 H 18 179/96 H 93 09/26/18 19:30 37.9 C H 113 H 20 163/95 H 95 09/26/18 18:41 114 H
[2018-09-27] MEDS ORDERED: METOPROLOL TARTRATE 1 MG/ML VIAL IV STA (06:22)
[2018-09-27 06:31] LABS: Estimated Average Glucose 169 mg/dl; Hemoglobin A1C 7.5 % (4.5-5.6)
[2018-09-27] MEDS: AMLODIPINE BESYLATE 5 MG TAB PO SCH (06:47)
[2018-09-27 07:07] LABS: Magnesium 1.6 mg/dl (1.8-2.4)
[2018-09-27] MEDS: FLUTICASONE PROPIONATE NA SPR 16 GM BTL NAE SCH (07:47)
[2018-09-27] MEDS: MULTIVITAMIN TAB PO SCH (07:48)
--- NOTE | 2018-09-27 08:16 | Hospitalist Progress Note ---
Date of Service September 27, 2018 Assessment & Plan (1) Sepsis: This is a 48 yo M with a PMH of DM I on insulin pump and HTN who presents with abdominal bloating, fever and fatigue x 4 days and was found to have sepsis 2/2 suspected anaplasmosis and possible UTI. -Febrile at 39.2 C and tachycardic at 127 on presentation -Suspected anaplasmosis. UTI ruled out. Supportive findings: Leucopenia, Thrombocytopenia +, PS- Rare inclusion suspicious for Anaplasma Phagocytophilum. -Empirically on IV Rocephin, Doxycycline - Day 2 . 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 -Anaplasma DNA and Ehlrlichia serology - Pending -Transaminitis, acute kidney injury and diffuse inflammation on CT abd/pelvis including possible duodenitis, pancreatitis, infectious or inflammatory pneumonitis, mildly prominent hilar and subcarinal adenopathy, likely reactive, cardiomegaly with trace pericardial effusion and splenomegaly. -Continue Doxycycline. Follow Lymes test, anaplasmosis DNA -ID consulted (3) Transaminitis: Trending down Tbili of 5.2 with direct bili 4.1, indicating conjugated etiology -AST 137, ALT: 177, Alk phos: 506 (normal LFTS as of Nov 2017). INR wnl -Likely due to anaplasmosis but need to evaluate for other causes -GB ultrasound with No duct dilation, no acute sonographic abnormality is identified in the right upper quadrant. No gallstones are seen. Hepatomegaly and hepatic steatosis. - GI: Acute hepatitis panel, RANDAL, AMA, ASMA ordered . MRCP ordered (4) Complicated UTI (urinary tract infection): UTI ruled out UA with trace nitrate and leuk esterase -No urinary symptoms -CT abd/pelvis with mind non-specific perinephric stranding -Empirically IV Rocephin x 2 -Urine cx- negative (5) EUSEBIA (acute kidney injury): Improving Cr elevated at 2.01 (baseline Cr low-mid 1s) -In setting of anaplasmosis, poor PO intake -IV fluids. Avoid nephrotoxic agents -Monitor BMP (6) Type 1 diabetes: HBA1C - 7.5 -Has insulin pump at home -Glycemic consult for pump management (7) HTN (hypertension): Mildly elevated BP -Holding losartan in setting of EUSEBIA (8) Allergic rhinitis: Singulair, Zyrtec, Flonase DVT Ppx: SCDs in setting of acute thrombocytopenia Code status: FULL PCP: [facility] Dispo: Medical management in progress Updated by bedside Subjective Patient is feeling a little better today. Still has significant weakness, fatigue. Abdominal bloating has improved. No nausea, vomiting. No diarrhea. Still on oxygen 2 L Physical Exam Physical Exam: GENERAL- AAOX3, No acute distress; OBESE + LUNGS- Air entry bilaterally decreased. No wheezing, rhonchi HEART- Regular rate and rhythm. No murmurs ABDOMEN- Soft, non tender, mild distension, Bowel sounds heard. EXTREMITIES- Good peripheral pulses, no edema Results & Data Vital Signs (Past 12 Hours) Vital Signs Temp Pulse Pulse Resp BP BP Pulse Ox 09/27/18 06:54 37.5 C 110 H 18 145/91 H 96 09/27/18 06:42 112 H 96 09/27/18 06:35 126 H 161/94 H 09/27/18 06:11 126 H 161/94 H 09/27/18 04:07 37.1 C 112 H 16 171/90 H 91 09/27/18 00:42 116 H 09/26/18 23:55 37.4 C 114 H 18 179/96 H 93
[2018-09-27] MEDS: MAGNESIUM SULFATE / D5W 1 GM/100 ML BAG IV SCH ×2 (08:43→10:23)
--- NOTE | 2018-09-27 11:28 | Gastrointestinal Consultation ---
Date of Consultation September 27, 2018 Assessment & Plan (1) Transaminitis: 48 year old male admitted with sepsis thought secondary to anaplasmosis and possible UTI on IV ABX - GI asked to evaluated for elevated LFTs. Non-con CT w/ question of duodenitis, pancreatitis and ascites w/o appreciation of gallstones. ABD US without biliary ductal dilation or stones. DDX discussed - NPO - MRCP - LR maintenance hydration - Antiemetics PRN - Analgesia PRN - Daily LFTs - Would repeat a lipase tomorrow - Acute hepatitis panel sent - RANDAL, AMA, ASMA sent - I will send full serology - Agree w/ ABX, add anaerobic coverage - Please start PO PPI BID Thank you for allowing us to participate in the care of this patient. Please call with any acute changes, questions or concerns. Please see addendum below with additional recommendation from my supervising physician. Present on Admission?: Yes Supervising Physician Co-Signing Physician Notes I have seen and examined the patient with ELIZABETH Hirsch whose note reflects our findings and plan. History of Present Illness Reason for Consultation: elevated LFTs Requesting Physician: Sim Attending Physician: Katia Montemayor History of Present Illness 48 year old male with history of T1DM w/ insulin pump, HTN who presented though the ED w/ vague complaints of abdominal pain, bloating, nausea and vomiting. GI was asked to evaluated for elevated LFTs and symptoms. Pt was seen and evaluated, chart reviewed. Family at bedside. Notes typical state of health until about 1 week ago. On Sunday he was extremely fatigues, tired w/ abdominal pain. This was upper abdomen. Associated with nausea, vomiting x 24 hours. The vomiting resolved but since he has had bloating, nausea and mild upper abdominal pain. Endorses constipation during this time as well. Moves bowels this AM, small. No black or bloody stools. There is mention of multiple tick bites in July. This AM, feels slightly better. No fevers. No abd pain. He is not NPO. On arrival, pt was febrile and tachycardic w/ thrombocytopenia that was noted as an OP as well. 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 Peripheral blood smear with rare inclusion suspicious for anaplasma. Started on IV ABX in the ED and has remained afebrile. CT abd/pelvis with diffuse inflammation including evidence of possible duodenitis, pancreatitis, infectious or inflammatory pneumonitis, mild adenopathy. Lipase 83 TB 5.2 --> 3.9 AST 137 -->111 ALT 177 -->147 ALKP 506 -->438 ABD US: Liver: The liver is enlarged, measuring over 20 cm in length. Hepatic ec hotexture is heterogeneous and slightly increased suggesting steatosis There is no intrahepatic biliary ductal dilatation. The main portal vein is patent.Gallbladder: The gallbladder is normal in appearance. No gallstones are identified. There is no gallbladder wall thickening or pericholecystic fluid. A sonographic Cervantes's sign is reportedly absent. The common bile duct measures up to 0.3 cm in diameter. Pancreas: Visualized portions of the pancreatic head and body are normal in appearance. The splenic vein is patent. CT: Moderate circumferential wall thickening of the proximal duodenum with mild adjacent inflammatory stranding and trace free fluid. Additional edema surrounds the pancreatic head and uncinate process. This finding likely represents a primary duodenitis or alternatively may reflect reactive change from a primary pancreatitis. Currently with lipase level and clinical exam. Bibasilar groundglass densities suggest infectious or inflammatory pneumonitis. Mildly prominent hilar and subcarinal adenopathy, likely reactive. Cardiomegaly with trace pericardial effusion. Prostamegaly with urinary bladder wall thickening suggestive of chronic bladder outlet obstruction. Splenomegaly. Allergies Allergy/AdvReac Type Severity Reaction Status Date / Time Penicillins Allergy Severe Hives Unverified 09/26/18 12:26 Home Medications Home Medications Medication Instructions Recorded Confirmed Type acetaminophen [Tylenol] 325 mg PO Q6H PRN 09/26/18 09/26/18 History apple cider vinegar 0 mg PO QAM 09/26/18 09/26/18 History benzonatate [Tessalon Perles] 100 mg PO TID PRN 09/26/18 09/26/18 History cetirizine [Zyrtec] 10 mg PO DAILY PRN 09/26/18 09/26/18 History fluticasone propionate [Flonase 2 spray INTRANASAL DAILY 09/26/18 09/26/18 History Allergy Relief] losartan 100 mg PO DAILY 09/26/18 09/26/18 History montelukast 10 mg PO QAM 09/26/18 09/26/18 History multivitamin 1 tab PO QAM 09/26/18 09/26/18 History ondansetron HCl [Zofran] 4 mg PO Q8H PRN 09/26/18 09/26/18 History simvastatin 20 mg PO PM 09/26/18 09/26/18 History subcutaneous insulin pump [MiniMed 09/26/18 09/26/18 History 530G Insulin Pump] Patient History Medical History Allergic rhinitis (Chronic) HTN (hypertension) (Chronic) Insulin dependent diabetes mellitus (Chronic) Surgical History H/O eye surgery (Chronic) Family History Other Colorectal cancer Coronary heart disease Cisse syndrome Social History Preferred Language: Romansh Communication Ability: Effective Grinder Chipper Required: No Beliefs That Will Affect Care: None Current Living Situation: Spouse Other Information That Helps Us Care for You: No Feels Safe at Home: Yes Safety Concerns: Feels Safe At This Time Smoking Status: Never smoker Hx Alcohol Use: Yes Alcohol type: beer Alcohol Intake Frequency Comment: 3x / week Hx Substance Use: No Review of Systems Constitutional: + fever, + chills, + fatigue and + malaise; no weight loss Respiratory: + cough; no dyspnea and no pain on inspiration Cardiovascular: no chest pain, no radiating jaw, neck or arm pain and no dyspnea on exertion Gastrointestinal: + abdominal pain, + bloating and + nausea; no belching, no early satiety, no heartburn, no vomiting, no coffee ground emesis, no hematemesis, no pain with swallowing, no dysphagia, no cramping, no excessive flatulence, no change in bowel habits, no change in stools, no constipation, no diarrhea/loose stools, no fecal incontinence, no constant urge to pass stools, no blood in stools and no melena Physical Exam Constitutional: well nourished and + ill appearing; no acute distress Neck: trachea midline Respiratory: normal respiratory effort, lungs clear to auscultation Cardiovascular: RRR, no murmur, no edema Gastrointestinal (Abdomen): Inspection/Auscultation: + abdomen distended and normal bowel sounds Percussion/Palpation: + abdomen tender and abdomen soft; no guarding, abdomen not rigid and no abdominal mass Skin: no rashes, warm and dry Results & Data Vital Signs (Past 12 Hours) Vital Signs Temp Pulse Pulse Resp BP BP Pulse Ox 09/27/18 11:07 37.8 C H 102 H 22 130/81 96 06/07/19 07:10 126 H 09/27/18 06:54 37.5 C 110 H 18 145/91 H 96 09/27/18 06:42 112 H 96 09/27/18 06:35 126 H 161/94 H 09/27/18 06:11 126 H 161/94 H 09/27/18 04:07 37.1 C 112 H 16 171/90 H 91 09/27/18 00:42 116 H 09/26/18 23:55 37.4 C 114 H 18 179/96 H 93 09/27/18 09/27/18 09/27/18 Range/Units 07:12 04:57 04:57 WBC (4.8-10.8) K/uL RBC (4.7-6.1) M/uL Hgb (14.0-18.0) g/dL Hct (42-52) % MCV (80-100) fL MCH (25-34) pg MCHC (32-36) g/dL RDW Std Deviation (36.4-46.3) fL RDW Coeff of Negrito (11.5-14.5) % Plt Count (130-400) K/uL Immature Gran % (Auto) % Neut % (Auto) % Lymph % (Auto) % [place] % (Auto) % Eos % (Auto) % Baso % (Auto) % Immature Gran # (Auto) (0.00-0.02) K/uL Neut # (Auto) (1.4-6.5) K/uL Lymph # (Auto) (1.2-3.4) K/uL [place] # (Auto) (0.11-0.59) K/uL Eos # (Auto) (0-0.5) K/uL Baso # (Auto) (0-0.2) K/uL Blood Smear Review Platelet Estimate (Normal) PT (9.0-12.0) Seconds INR (0.9-1.1) Sodium (136-145) mmol/L Potassium (3.5-5.1) mmol/L Chloride (98-107) mmol/L Carbon Dioxide (21-32) mmol/L Anion Gap (3-11) BUN (7-18) mg/dl Creatinine (0.6-1.4) mg/dl Est Cr Clr Drug Dosing ml/min Est GFR ( Amer) Est GFR (Non-Af Amer) BUN/Creatinine Ratio (10-20) Glucose (70-99) mg/dl POC Glucose 199 H (70-99) Estimat Average Glucose 169 mg/dl Hemoglobin A1c 7.5 H (4.5-5.6) % POC Lactic Acid Dileep (0.90-1.70) mmol/L Calcium (8.5-10.1) mg/dl Magnesium 1.6 L (1.8-2.4) mg/dl Total Bilirubin (0.2-1) mg/dl Direct Bilirubin (0-0.2) mg/dl AST (15-37) U/L ALT (12-78) U/L Alkaline Phosphatase (45-117) U/L Total Protein (6.4-8.2) gm/dl Albumin (3.4-5.0) gm/dl Globulin (2.5-4.0) gm/dl Albumin/Globulin Ratio (0.9-2) Lipase (73-393) U/L TSH 1.800 (0.300-4.500) uIu/ml Urine Color Urine Appearance (Clear) Urine pH (4.5-7.5) POC Urine pH (4.5-7.5) Ur Specific [place] (1.000-1.030) Urine Protein (Negative) POC Urine Protein (Negative) Urine Glucose (UA) (Negative) POC Ur Glucose (UA) (Normal) Urine Ketones (Negative) POC Urine Ketones (Negative) Urine Blood (Negative) POC Urine Blood (Negative) Urine Nitrite (Negative) POC Urine Nitrite (Negative) Urine Bilirubin (Negative) POC Urine Bilirubin (Negative) Urine Urobilinogen (Negative) POC Urine Urobilinogen (Normal) Ur Leukocyte Esterase (Negative) POC U Leukocyte Esteras (Negative) Urine WBC (Auto) (0-5) /hpf Urine RBC (Auto) (0-4) /hpf U Hyaline Cast (Auto) (0-5) /lpf U Epithel Cells (Auto) (0-5) /lpf Urine Bacteria (Auto) (Negative) Ur Renal Epithelial Cell Granular Casts (0) /lpf Urine Yeast RANDAL Screen Anti-Mitochondrial Ab Anti-Smooth Muscle Ab A. phagocytophilum DNA E. chaffeensis IgG Ab E. chaffeensis IgM Ab E. chaffeensis Interp E. chaffeensis Comment Hepatitis A IgM Ab Hep Bs Antigen (Neg) Hep B Core IgM Ab Hepatitis C Antibody (Neg) 09/27/18 09/27/18 09/27/18 Range/Units 04:57 04:57 04:15 WBC 5.60 (4.8-10.8) K/uL RBC 4.33 L (4.7-6.1) M/uL Hgb 13.1 L (14.0-18.0) g/dL Hct 37.7 L (42-52) % MCV 87.1 (80-100) fL MCH 30.3 (25-34) pg MCHC 34.7 (32-36) g/dL RDW Std Deviation 43.9 (36.4-46.3) fL RDW Coeff of Negrito 13.7 (11.5-14.5) % Plt Count 36 L (130-400) K/uL Immature Gran % (Auto) % Neut % (Auto) % Lymph % (Auto) % [place] % (Auto) % Eos % (Auto) % Baso % (Auto) % Immature Gran # (Auto) (0.00-0.02) K/uL Neut # (Auto) (1.4-6.5) K/uL Lymph # (Auto) (1.2-3.4) K/uL [place] # (Auto) (0.11-0.59) K/uL Eos # (Auto) (0-0.5) K/uL Baso # (Auto) (0-0.2) K/uL Blood Smear Review Platelet Estimate Decreased L (Normal) PT (9.0-12.0) Seconds INR (0.9-1.1) Sodium 135 L (136-145) mmol/L Potassium 4.1 (3.5-5.1) mmol/L Chloride 103 (98-107) mmol/L Carbon Dioxide 26 (21-32) mmol/L Anion Gap 6.0 (3-11) BUN 23 H (7-18) mg/dl Creatinine 1.85 H (0.6-1.4) mg/dl Est Cr Clr Drug Dosing 55.3 ml/min Est GFR ( Amer) 49.5 Est GFR (Non-Af Amer) 42.7 BUN/Creatinine Ratio 12.7 (10-20) Glucose 198 H (70-99) mg/dl POC Glucose 161 H (70-99) Estimat Average Glucose mg/dl Hemoglobin A1c (4.5-5.6) % POC Lactic Acid Dileep (0.90-1.70) mmol/L Calcium 8.4 L (8.5-10.1) mg/dl Magnesium (1.8-2.4) mg/dl Total Bilirubin 3.9 H (0.2-1) mg/dl Direct Bilirubin (0-0.2) mg/dl AST 111 H (15-37) U/L ALT 147 H (12-78) U/L Alkaline Phosphatase 438 H (45-117) U/L Total Protein 5.7 L (6.4-8.2) gm/dl Albumin 2.1 L (3.4-5.0) gm/dl Globulin 3.6 (2.5-4.0) gm/dl Albumin/Globulin Ratio 0.6 L (0.9-2) Lipase (73-393) U/L TSH (0.300-4.500) uIu/ml Urine Color Urine Appearance (Clear) Urine pH (4.5-7.5) POC Urine pH (4.5-7.5) Ur Specific [place] (1.000-1.030) Urine Protein (Negative) POC Urine Protein (Negative) Urine Glucose (UA) (Negative) POC Ur Glucose (UA) (Normal) Urine Ketones (Negative) POC Urine Ketones (Negative) Urine Blood (Negative) POC Urine Blood (Negative) Urine Nitrite (Negative) POC Urine Nitrite (Negative) Urine Bilirubin (Negative) POC Urine Bilirubin (Negative) Urine Urobilinogen (Negative) POC Urine Urobilinogen (Normal) Ur Leukocyte Esterase (Negative) POC U Leukocyte Esteras (Negative) Urine WBC (Auto) (0-5) /hpf Urine RBC (Auto) (0-4) /hpf U Hyaline Cast (Auto) (0-5) /lpf U Epithel Cells (Auto) (0-5) /lpf Urine Bacteria (Auto) (Negative) Ur Renal Epithelial Cell Granular Casts (0) /lpf Urine Yeast RANDAL Screen Anti-Mitochondrial Ab Anti-Smooth Muscle Ab A. phagocytophilum DNA E. chaffeensis IgG Ab E. chaffeensis IgM Ab E. chaffeensis Interp E. chaffeensis Comment Hepatitis A IgM Ab Hep Bs Antigen (Neg) Hep B Core IgM Ab Hepatitis C Antibody (Neg) 09/26/18 09/26/18 09/26/18 Range/Units 23:58 20:16 20:14 WBC (4.8-10.8) K/uL RBC (4.7-6.1) M/uL Hgb (14.0-18.0) g/dL Hct (42-52) % MCV (80-100) fL MCH (25-34) pg MCHC (32-36) g/dL RDW Std Deviation (36.4-46.3) fL RDW Coeff of Negrito (11.5-14.5) % Plt Count (130-400) K/uL Immature Gran % (Auto) % Neut % (Auto) % Lymph % (Auto) % [place] % (Auto) % Eos % (Auto) % Baso % (Auto) % Immature Gran # (Auto) (0.00-0.02) K/uL Neut # (Auto) (1.4-6.5) K/uL Lymph # (Auto) (1.2-3.4) K/uL [place] # (Auto) (0.11-0.59) K/uL Eos # (Auto) (0-0.5) K/uL Baso # (Auto) (0-0.2) K/uL Blood Smear Review Platelet Estimate (Normal) PT (9.0-12.0) Seconds INR (0.9-1.1) Sodium (136-145) mmol/L Potassium (3.5-5.1) mmol/L Chloride (98-107) mmol/L Carbon Dioxide (21-32) mmol/L Anion Gap (3-11) BUN (7-18) mg/dl Creatinine (0.6-1.4) mg/dl Est Cr Clr Drug Dosing ml/min Est GFR ( Amer) Est GFR (Non-Af Amer) BUN/Creatinine Ratio (10-20) Glucose (70-99) mg/dl POC Glucose 181 H 155 H 136 H (70-99) Estimat Average Glucose mg/dl Hemoglobin A1c (4.5-5.6) % POC Lactic Acid Dileep (0.90-1.70) mmol/L Calcium (8.5-10.1) mg/dl Magnesium (1.8-2.4) mg/dl Total Bilirubin (0.2-1) mg/dl Direct Bilirubin (0-0.2) mg/dl AST (15-37) U/L ALT (12-78) U/L Alkaline Phosphatase (45-117) U/L Total Protein (6.4-8.2) gm/dl Albumin (3.4-5.0) gm/dl Globulin (2.5-4.0) gm/dl Albumin/Globulin Ratio (0.9-2) Lipase (73-393) U/L TSH (0.300-4.500) uIu/ml Urine Color Urine Appearance (Clear) Urine pH (4.5-7.5) POC Urine pH (4.5-7.5) Ur Specific [place] (1.000-1.030) Urine Protein (Negative) POC Urine Protein (Negative) Urine Glucose (UA) (Negative) POC Ur Glucose (UA) (Normal) Urine Ketones (Negative) POC Urine Ketones (Negative) Urine Blood (Negative) POC Urine Blood (Negative) Urine Nitrite (Negative) POC Urine Nitrite (Negative) Urine Bilirubin (Negative) POC Urine Bilirubin (Negative) Urine Urobilinogen (Negative) POC Urine Urobilinogen (Normal) Ur Leukocyte Esterase (Negative) POC U Leukocyte Esteras (Negative) Urine WBC (Auto) (0-5) /hpf Urine RBC (Auto) (0-4) /hpf U Hyaline Cast (Auto) (0-5) /lpf U Epithel Cells (Auto) (0-5) /lpf Urine Bacteria (Auto) (Negative) Ur Renal Epithelial Cell Granular Casts (0) /lpf Urine Yeast RANDAL Screen Anti-Mitochondrial Ab Anti-Smooth Muscle Ab A. phagocytophilum DNA E. chaffeensis IgG Ab E. chaffeensis IgM Ab E. chaffeensis Interp E. chaffeensis Comment Hepatitis A IgM Ab Hep Bs Antigen (Neg) Hep B Core IgM Ab Hepatitis C Antibody (Neg) 09/26/18 09/26/18 09/26/18 Range/Units 18:21 18:21 13:19 WBC (4.8-10.8) K/uL RBC (4.7-6.1) M/uL Hgb (14.0-18.0) g/dL Hct (42-52) % MCV (80-100) fL MCH (25-34) pg MCHC (32-36) g/dL RDW Std Deviation (36.4-46.3) fL RDW Coeff of Negrito (11.5-14.5) % Plt Count (130-400) K/uL Immature Gran % (Auto) % Neut % (Auto) % Lymph % (Auto) % [place] % (Auto) % Eos % (Auto) % Baso % (Auto) % Immature Gran # (Auto) (0.00-0.02) K/uL Neut # (Auto) (1.4-6.5) K/uL Lymph # (Auto) (1.2-3.4) K/uL [place] # (Auto) (0.11-0.59) K/uL Eos # (Auto) (0-0.5) K/uL Baso # (Auto) (0-0.2) K/uL Blood Smear Review Platelet Estimate (Normal) PT (9.0-12.0) Seconds INR (0.9-1.1) Sodium (136-145) mmol/L Potassium (3.5-5.1) mmol/L Chloride (98-107) mmol/L Carbon Dioxide (21-32) mmol/L Anion Gap (3-11) BUN (7-18) mg/dl Creatinine (0.6-1.4) mg/dl Est Cr Clr Drug Dosing ml/min Est GFR ( Amer) Est GFR (Non-Af Amer) BUN/Creatinine Ratio (10-20) Glucose (70-99) mg/dl POC Glucose (70-99) Estimat Average Glucose mg/dl Hemoglobin A1c (4.5-5.6) % POC Lactic Acid Dileep 1.54 (0.90-1.70) mmol/L Calcium (8.5-10.1) mg/dl Magnesium (1.8-2.4) mg/dl Total Bilirubin (0.2-1) mg/dl Direct Bilirubin (0-0.2) mg/dl AST (15-37) U/L ALT (12-78) U/L Alkaline Phosphatase (45-117) U/L Total Protein (6.4-8.2) gm/dl Albumin (3.4-5.0) gm/dl Globulin (2.5-4.0) gm/dl Albumin/Globulin Ratio (0.9-2) Lipase (73-393) U/L TSH (0.300-4.500) uIu/ml Urine Color Urine Appearance (Clear) Urine pH (4.5-7.5) POC Urine pH (4.5-7.5) Ur Specific [place] (1.000-1.030) Urine Protein (Negative) POC Urine Protein (Negative) Urine Glucose (UA) (Negative) POC Ur Glucose (UA) (Normal) Urine Ketones (Negative) POC Urine Ketones (Negative) Urine Blood (Negative) POC Urine Blood (Negative) Urine Nitrite (Negative) POC Urine Nitrite (Negative) Urine Bilirubin (Negative) POC Urine Bilirubin (Negative) Urine Urobilinogen (Negative) POC Urine Urobilinogen (Normal) Ur Leukocyte Esterase (Negative) POC U Leukocyte Esteras (Negative) Urine WBC (Auto) (0-5) /hpf Urine RBC (Auto) (0-4) /hpf U Hyaline Cast (Auto) (0-5) /lpf U Epithel Cells (Auto) (0-5) /lpf Urine Bacteria (Auto) (Negative) Ur Renal Epithelial Cell Granular Casts (0) /lpf Urine Yeast RANDAL Screen Pending Anti-Mitochondrial Ab Pending Anti-Smooth Muscle Ab Pending A. phagocytophilum DNA E. chaffeensis IgG Ab E. chaffeensis IgM Ab E. chaffeensis Interp E. chaffeensis Comment Hepatitis A IgM Ab Pending Hep Bs Antigen Neg (Neg) Hep B Core IgM Ab Pending Hepatitis C Antibody Neg (Neg) 09/26/18 09/26/18 09/26/18 Range/Units 12:38 12:38 12:38 WBC (4.8-10.8) K/uL RBC (4.7-6.1) M/uL Hgb (14.0-18.0) g/dL Hct (42-52) % MCV (80-100) fL MCH (25-34) pg MCHC (32-36) g/dL RDW Std Deviation (36.4-46.3) fL RDW Coeff of Negrito (11.5-14.5) % Plt Count (130-400) K/uL Immature Gran % (Auto) % Neut % (Auto) % Lymph % (Auto) % [place] % (Auto) % Eos % (Auto) % Baso % (Auto) % Immature Gran # (Auto) (0.00-0.02) K/uL Neut # (Auto) (1.4-6.5) K/uL Lymph # (Auto) (1.2-3.4) K/uL [place] # (Auto) (0.11-0.59) K/uL Eos # (Auto) (0-0.5) K/uL Baso # (Auto) (0-0.2) K/uL Blood Smear Review Platelet Estimate (Normal) PT 10.0 (9.0-12.0) Seconds INR 1.0 (0.9-1.1) Sodium (136-145) mmol/L Potassium (3.5-5.1) mmol/L Chloride (98-107) mmol/L Carbon Dioxide (21-32) mmol/L Anion Gap (3-11) BUN (7-18) mg/dl Creatinine (0.6-1.4) mg/dl Est Cr Clr Drug Dosing ml/min Est GFR ( Amer) Est GFR (Non-Af Amer) BUN/Creatinine Ratio (10-20) Glucose (70-99) mg/dl POC Glucose (70-99) Estimat Average Glucose mg/dl Hemoglobin A1c (4.5-5.6) % POC Lactic Acid Dileep (0.90-1.70) mmol/L Calcium (8.5-10.1) mg/dl Magnesium (1.8-2.4) mg/dl Total Bilirubin (0.2-1) mg/dl Direct Bilirubin 4.1 H (0-0.2) mg/dl AST (15-37) U/L ALT (12-78) U/L Alkaline Phosphatase (45-117) U/L Total Protein (6.4-8.2) gm/dl Albumin (3.4-5.0) gm/dl Globulin (2.5-4.0) gm/dl Albumin/Globulin Ratio (0.9-2) Lipase (73-393) U/L TSH (0.300-4.500) uIu/ml Urine Color Urine Appearance (Clear) Urine pH (4.5-7.5) POC Urine pH (4.5-7.5) Ur Specific [place] (1.000-1.030) Urine Protein (Negative) POC Urine Protein (Negative) Urine Glucose (UA) (Negative) POC Ur Glucose (UA) (Normal) Urine Ketones (Negative) POC Urine Ketones (Negative) Urine Blood (Negative) POC Urine Blood (Negative) Urine Nitrite (Negative) POC Urine Nitrite (Negative) Urine Bilirubin (Negative) POC Urine Bilirubin (Negative) Urine Urobilinogen (Negative) POC Urine Urobilinogen (Normal) Ur Leukocyte Esterase (Negative) POC U Leukocyte Esteras (Negative) Urine WBC (Auto) (0-5) /hpf Urine RBC (Auto) (0-4) /hpf U Hyaline Cast (Auto) (0-5) /lpf U Epithel Cells (Auto) (0-5) /lpf Urine Bacteria (Auto) (Negative) Ur Renal Epithelial Cell Granular Casts (0) /lpf Urine Yeast RANDAL Screen Anti-Mitochondrial Ab Anti-Smooth Muscle Ab A. phagocytophilum DNA Pending E. chaffeensis IgG Ab Pending E. chaffeensis IgM Ab Pending E. chaffeensis Interp Pending E. chaffeensis Comment Pending Hepatitis A IgM Ab Hep Bs Antigen (Neg) Hep B Core IgM Ab Hepatitis C Antibody (Neg) 09/26/18 09/26/18 09/26/18 Range/Units 12:38 12:38 11:56 WBC 4.53 L (4.8-10.8) K/uL RBC 4.59 L (4.7-6.1) M/uL Hgb 14.0 (14.0-18.0) g/dL Hct 39.7 L (42-52) % MCV 86.5 (80-100) fL MCH 30.5 (25-34) pg MCHC 35.3 (32-36) g/dL RDW Std Deviation 43.0 (36.4-46.3) fL RDW Coeff of Negrito 13.5 (11.5-14.5) % Plt Count 40 L (130-400) K/uL Immature Gran % (Auto) 0.0 % Neut % (Auto) 80.6 % Lymph % (Auto) 13.2 % [place] % (Auto) 5.5 % Eos % (Auto) 0.0 % Baso % (Auto) 0.7 % Immature Gran # (Auto) 0.00 (0.00-0.02) K/uL Neut # (Auto) 3.65 (1.4-6.5) K/uL Lymph # (Auto) 0.60 L (1.2-3.4) K/uL [place] # (Auto) 0.25 (0.11-0.59) K/uL Eos # (Auto) 0.00 (0-0.5) K/uL Baso # (Auto) 0.03 (0-0.2) K/uL Blood Smear Review Platelet Estimate Decreased L (Normal) PT (9.0-12.0) Seconds INR (0.9-1.1) Sodium 134 L (136-145) mmol/L Potassium 4.2 (3.5-5.1) mmol/L Chloride 100 (98-107) mmol/L Carbon Dioxide 26 (21-32) mmol/L Anion Gap 8.0 (3-11) BUN 25 H (7-18) mg/dl Creatinine 2.01 H (0.6-1.4) mg/dl Est Cr Clr Drug Dosing 51.2 ml/min Est GFR ( Amer) 44.8 Est GFR (Non-Af Amer) 38.6 BUN/Creatinine Ratio 12.6 (10-20) Glucose 224 H (70-99) mg/dl POC Glucose (70-99) Estimat Average Glucose mg/dl Hemoglobin A1c (4.5-5.6) % POC Lactic Acid Dileep (0.90-1.70) mmol/L Calcium 8.8 (8.5-10.1) mg/dl Magnesium (1.8-2.4) mg/dl Total Bilirubin 5.2 H (0.2-1) mg/dl Direct Bilirubin (0-0.2) mg/dl AST 137 H (15-37) U/L ALT 177 H (12-78) U/L Alkaline Phosphatase 506 H (45-117) U/L Total Protein 6.5 (6.4-8.2) gm/dl Albumin 2.3 L (3.4-5.0) gm/dl Globulin 4.2 H (2.5-4.0) gm/dl Albumin/Globulin Ratio 0.6 L (0.9-2) Lipase 83 (73-393) U/L TSH (0.300-4.500) uIu/ml Urine Color Genesis Urine Appearance Turbid A (Clear) Urine pH 5.5 (4.5-7.5) POC Urine pH (4.5-7.5) Ur Specific [place] 1.034 H (1.000-1.030) Urine Protein 4+ H (Negative) POC Urine Protein (Negative) Urine Glucose (UA) 3+ H (Negative) POC Ur Glucose (UA) (Normal) Urine Ketones Trace H (Negative) POC Urine Ketones (Negative) Urine Blood 3+ H (Negative) POC Urine Blood (Negative) Urine Nitrite Positive A (Negative) POC Urine Nitrite (Negative) Urine Bilirubin 3+ H (Negative) POC Urine Bilirubin (Negative) Urine Urobilinogen Negative (Negative) POC Urine Urobilinogen (Normal) Ur Leukocyte Esterase Trace H (Negative) POC U Leukocyte Esteras (Negative) Urine WBC (Auto) 10-30 H (0-5) /hpf Urine RBC (Auto) >30 H (0-4) /hpf U Hyaline Cast (Auto) >30 H (0-5) /lpf U Epithel Cells (Auto) >30 H (0-5) /lpf Urine Bacteria (Auto) Negative (Negative) Ur Renal Epithelial Cell Not Reportable Granular Casts 10-20 H (0) /lpf Urine Yeast Not Reportable RANDAL Screen Anti-Mitochondrial Ab Anti-Smooth Muscle Ab A. phagocytophilum DNA E. chaffeensis IgG Ab E. chaffeensis IgM Ab E. chaffeensis Interp E. chaffeensis Comment Hepatitis A IgM Ab Hep Bs Antigen (Neg) Hep B Core IgM Ab Hepatitis C Antibody (Neg) 09/26/18 Range/Units 11:56 WBC (4.8-10.8) K/uL RBC (4.7-6.1) M/uL Hgb (14.0-18.0) g/dL Hct (42-52) % MCV (80-100) fL MCH (25-34) pg MCHC (32-36) g/dL RDW Std Deviation (36.4-46.3) fL RDW Coeff of [place]grito (11.5-14.5) % Plt Count (130-400) K/uL Immature Gran % (Auto) % Neut % (Auto) % Lymph % (Auto) % [place] % (Auto) % Eos % (Auto) % Baso % (Auto) % Immature Gran # (Auto) (0.00-0.02) K/uL Neut # (Auto) (1.4-6.5) K/uL Lymph # (Auto) (1.2-3.4) K/uL [place] # (Auto) (0.11-0.59) K/uL Eos # (Auto) (0-0.5) K/uL Baso # (Auto) (0-0.2) K/uL Blood Smear Review Platelet Estimate (Normal) PT (9.0-12.0) Seconds INR (0.9-1.1) Sodium (136-145) mmol/L Potassium (3.5-5.1) mmol/L Chloride (98-107) mmol/L Carbon Dioxide (21-32) mmol/L Anion Gap (3-11) BUN (7-18) mg/dl Creatinine (0.6-1.4) mg/dl Est Cr Clr Drug Dosing ml/min Est GFR ( Amer) Est GFR (Non-Af Amer) BUN/Creatinine Ratio (10-20) Glucose (70-99) mg/dl POC Glucose (70-99) Estimat Average Glucose mg/dl Hemoglobin A1c (4.5-5.6) % POC Lactic Acid Dileep (0.90-1.70) mmol/L Calcium (8.5-10.1) mg/dl Magnesium (1.8-2.4) mg/dl Total Bilirubin (0.2-1) mg/dl Direct Bilirubin (0-0.2) mg/dl AST (15-37) U/L ALT (12-78) U/L Alkaline Phosphatase (45-117) U/L Total Protein (6.4-8.2) gm/dl Albumin (3.4-5.0) gm/dl Globulin (2.5-4.0) gm/dl Albumin/Globulin Ratio (0.9-2) Lipase (73-393) U/L TSH (0.300-4.500) uIu/ml Urine Color Urine Appearance (Clear) Urine pH (4.5-7.5) POC Urine pH 5 (4.5-7.5) Ur Specific [place] (1.000-1.030) Urine Protein (Negative) POC Urine Protein 3+ H (Negative) Urine Glucose (UA) (Negative) POC Ur Glucose (UA) 1000 H (Normal) Urine Ketones (Negative) POC Urine Ketones Negative (Negative) Urine Blood (Negative) POC Urine Blood 250 H (Negative) Urine Nitrite (Negative) POC Urine Nitrite Negative (Negative) Urine Bilirubin (Negative) POC Urine Bilirubin 3+ H (Negative) Urine Urobilinogen (Negative) POC Urine Urobilinogen 8 H (Normal) Ur Leukocyte Esterase (Negative) POC U Leukocyte Esteras Trace H (Negative) Urine WBC (Auto) (0-5) /hpf Urine RBC (Auto) (0-4) /hpf U Hyaline Cast (Auto) (0-5) /lpf U Epithel Cells (Auto) (0-5) /lpf Urine Bacteria (Auto) (Negative) Ur Renal Epithelial Cell Granular Casts (0) /lpf Urine Yeast RANDAL Screen Anti-Mitochondrial Ab Anti-Smooth Muscle Ab A. phagocytophilum DNA E. chaffeensis IgG Ab E. chaffeensis IgM Ab E. chaffeensis Interp E. chaffeensis Comment Hepatitis A IgM Ab Hep Bs Antigen (Neg) Hep B Core IgM Ab Hepatitis C Antibody (Neg)
--- NOTE | 2018-09-27 14:04 | Pharmacy Report ---
Pharmacy Glycemic Short Note 2 - Date of Service September 27, 2018 - Glycemic Short BSG Results (Last 24 hours): 09/26/18 09/26/18 09/26/18 20:14 20:16 23:58 Glucose POC Glucose 136 H 155 H 181 H 09/27/18 09/27/18 09/27/18 04:15 04:57 07:12 Glucose 198 H POC Glucose 161 H 199 H 09/27/18 11:11 Glucose POC Glucose 167 H A/P: * Spoke w/ pt and SI bedside this AM. Pt strongly prefers to use his own insulin pump. I did d/w them that if insulin requirements change acutely pharmacy will assume control of his insulin regimen. Pump reservoir was successful repleted this AM with home supply of Admelog. CGM rotated appropriately. * I stressed that CGM's are not FDA approved for inpt glycemic management. * Pt NPO per GI consult. Given his type 1 diabetes and endogenous insulin resistance we will not reduce his metabolic rate. PLAN FOR DISCHARGE: * to be determined. would probably be best managed with [facility] on discharge.
--- NOTE | 2018-09-27 14:05 | Infectious Disease Consult ---
Date of Consultation September 27, 2018 Assessment & Plan (1) Anaplasmosis: continue doxy, will need 21 days doxy 100mg po bid. will stop rocephin, doubt uti, >30 ep cells. doubt pancreatitis, suspect LFT elevation due to Anaplasmosis, improving today. will also check lyme western blot as he does admit to several tick bites. Ok for d/c when otherwise stable. 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 T1D with pump. present on my exam. 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 smear + anaplasma, has had several tick bites in recent past. Started on rocephin and doxy. LFTs elevated, AST 137, now 111, ALT 177, now 147. CT abd showed inflammation around pancreas, GI consulted, for MRCP. tolerating clears, asking for regular diet. temp 39.3 in ER, now 37.8, overall feeling better but still some fatigue, states fever is resolved. denies abd pain, no n/v/d, no gu symptoms. no myalgia/arthralgia. no rashes. no joint swelling. tolerating abx. blood and urine cultures pending, UA 10-30 >30 ep cells. wbc 5.6 today, platelets 36, creat 1.8 Allergies Allergy/AdvReac Type Severity Reaction Status Date / Time Penicillins Allergy Severe Hives Unverified 09/26/18 12:26 Home Medications Home Medications Medication Instructions Recorded Confirmed Type acetaminophen [Tylenol] 325 mg PO Q6H PRN 09/26/18 09/26/18 History apple cider vinegar 0 mg PO QAM 09/26/18 09/26/18 History benzonatate [Tessalon Perles] 100 mg PO TID PRN 09/26/18 09/26/18 History cetirizine [Zyrtec] 10 mg PO DAILY PRN 09/26/18 09/26/18 History fluticasone propionate [Flonase 2 spray INTRANASAL DAILY 09/26/18 09/26/18 History Allergy Relief] losartan 100 mg PO DAILY 09/26/18 09/26/18 History montelukast 10 mg PO QAM 09/26/18 09/26/18 History multivitamin 1 tab PO QAM 09/26/18 09/26/18 History ondansetron HCl [Zofran] 4 mg PO Q8H PRN 09/26/18 09/26/18 History simvastatin 20 mg PO PM 09/26/18 09/26/18 History subcutaneous insulin pump [MiniMed 09/26/18 09/26/18 History 530G Insulin Pump] Patient History Medical History Allergic rhinitis (Chronic) HTN (hypertension) (Chronic) Insulin dependent diabetes mellitus (Chronic) Surgical History H/O eye surgery (Chronic) Family History Other Colorectal cancer Coronary heart disease Cisse syndrome Social History Preferred Language: Honduran Communication Ability: Effective Training And Development Assistant Required: No Beliefs That Will Affect Care: None Current Living Situation: Spouse Other Information That Helps Us Care for You: No Feels Safe at Home: Yes Safety Concerns: Feels Safe At This Time Smoking Status: Never smoker Hx Alcohol Use: Yes Alcohol type: beer Alcohol Intake Frequency Comment: 3x / week Hx Substance Use: No Review of Systems Review of Systems: All systems reviewed & are unremarkable except as noted in HPI & below Physical Exam Constitutional: WD/WN, vitals as above Eyes: PERRL, conjunctivae normal, anicteric sclerae ENMT: external ear and nose normal, oropharynx normal Neck: trachea midline, no thyromegaly Respiratory: normal respiratory effort, lungs clear to auscultation Cardiovascular: RRR, no murmur, no edema Gastrointestinal (Abdomen): normal bowel sounds, soft, nontender, no hepatosplenomegaly Musculoskeletal: no cyanosis or clubbing, extremities motor strength 5/5 Skin: no rashes, warm and dry Psychiatric: A+Ox3, euthymic affect Results & Data Vital Signs (Past 12 Hours) Vital Signs Temp Pulse Pulse Resp BP BP Pulse Ox 09/27/18 11:07 37.8 C H 102 H 22 130/81 96 09/27/18 07:10 126 H 09/27/18 06:54 37.5 C 110 H 18 145/91 H 96 09/27/18 06:42 112 H 96 09/27/18 06:35 126 H 161/94 H 09/27/18 06:11 126 H 161/94 H 09/27/18 04:07 37.1 C 112 H 16 171/90 H 91
--- NOTE | 2018-09-27 17:49 | Magnetic Resonance Report ---
MR MRCP CLINICAL HISTORY: 48 years-old Male presenting with imaging w? panc, elevated LFTs. TECHNIQUE: Multisequence, multiplanar MR imaging of the abdomen was performed without the use of intr avenous contrast. Dedicated MRCP protocol was utilized. 3-D volumetric and/or maximum intensity proje ction (MIP) images were subsequently reconstructed for review. IV contrast: None. COMPARISON: CT from 09/26/2018 and ultrasound from 09/26/2018. FINDINGS: Localizer images: Unremarkable. Lung bases: Lung base clear. Normal heart size. No pericardial or pleural effusion. Liver: Normal morphology. Biliary: No intrahepatic or extrahepatic biliary ductal dilatation. Normal gallbladder. Pancreas: Moderate parenchymal atrophy. Spleen: Mildly enlarged measuring 13.8 cm in maximal sagittal dimension. Adrenal glands: Normal noncontrast appearance. Kidneys and ureters: Normal noncontrast appearance. No hydronephrosis. Normal ureters. Bowel: Periduodenal fluid with mild wall thickening of the descending portion of the duodenum measuri ng up to 8-9 mm in thickness. Peritoneal cavity: Retroperitoneal free fluid in the periduodenal region tracking along the anterior pararenal spaces. No significant free intraperitoneal fluid. Lymph nodes: No gross lymphadenopathy allowing for noncontrast technique. Vasculature: Normal noncontrast appearance. Abdominal wall: Normal. Musculoskeletal: Normal. IMPRESSION: 1. Findings most concerning for duodenitis. No convincing evidence of pancreatitis as the retroperit parnell fluid does not track along the pancreas. 2. No cholelithiasis or choledocholithiasis. No biliary ductal dilatation. 3. Mild splenomegaly. Electronically signed by: Cameron Okeefe M.D. 09/27/2018 5:47 PM
[2018-09-27] MEDS ORDERED: cefTRIAXone SODIUM 2,000 MG in DEXTROSE 5% 50 ML IV SCH (18:00)
[2018-09-27] MEDS: INSULIN PUMP SC SCH ×2 (18:07→21:22)
[2018-09-27] MEDS: MONTELUKAST SODIUM 10 MG TABLET PO SCH (21:01)
[2018-09-28] MEDS: LACTATED RINGER'S 1,000 ML IV SCH ×2 (03:31→13:53)
[2018-09-28] MEDS: DOXYCYCLINE HYCLATE 100 MG in DEXTROSE 5% 100 ML IV SCH ×2 (04:27→13:16)
[2018-09-28 06:51] LABS: Hematocrit (blood only) 34.5 % (42-52); Hemoglobin 12.3 g/dL (14.0-18.0); Mean Corpuscular Hgb Conc 35.7 g/dL (32-36); Mean Platelet Volume 11.5 fL (7.4-10.4); Platelet Count 58 K/uL (130-400); RDW Standard Deviation 44.2 fL (36.4-46.3); Red Blood Count 4.01 M/uL (4.7-6.1); White Blood Count 9.18 K/uL (4.8-10.8)
[2018-09-28 06:56] LABS: Albumin Level 1.9 gm/dl (3.4-5.0); BUN Creatinine Ratio 15.7 (10-20); Calcium 8.4 mg/dl (8.5-10.1); Creatinine Clr Calc Pharmacy 79.6 ml/min; Est GFR (African American) 76.6; Est GFR (Non-African American) 66.1; Magnesium 1.8 mg/dl (1.8-2.4); Potassium 3.7 mmol/L (3.5-5.1)
[2018-09-28 06:59] LABS: Basophils # (auto) 0.04 K/uL (0-0.2); Basophils % (auto) 0.4 %; Eosinophils # (auto) 0.02 K/uL (0-0.5); Eosinophils % (auto) 0.2 %; Giant Platelets 1+; Immature Granulocytes # (auto) 0.04 K/uL (0.00-0.02); Immature Granulocytes % (auto) 0.4 %; Lymphocytes # (auto) 2.28 K/uL (1.2-3.4); Lymphocytes % (auto) 24.8 %; Monocytes # (auto) 0.85 K/uL (0.11-0.59); Monocytes % (auto) 9.3 %; Neutrophils # (auto) 5.95 K/uL (1.4-6.5); Neutrophils % (auto) 64.9 %
[2018-09-28 07:00] LABS: Albumin Globulin Ratio 0.5 (0.9-2); Bilirubin,Total 2.6 mg/dl (0.2-1); Total Protein 5.9 gm/dl (6.4-8.2)
[2018-09-28] MEDS: INSULIN PUMP SC SCH ×4 (08:00→21:03)
[2018-09-28] MEDS: AMLODIPINE BESYLATE 5 MG TAB PO SCH (09:01)
[2018-09-28] MEDS: MULTIVITAMIN TAB PO SCH (09:01)
[2018-09-28] MEDS: FLUTICASONE PROPIONATE NA SPR 16 GM BTL NAE SCH (09:02)
[2018-09-28] MEDS ORDERED: COUGH DROP (SUGAR FREE) LOZ 24 LOZ/1 BOX BUCCAL ONE (09:56)
--- NOTE | 2018-09-28 13:39 | Hospitalist Progress Note ---
Date of Service September 28, 2018 Assessment & Plan (1) Sepsis: This is a 48 yo M with a PMH of DM I on insulin pump and HTN who presents with abdominal bloating, fever and fatigue x 4 days and was found to have sepsis 2/2 suspected anaplasmosis and possible UTI. SEPSIS has resolved -Febrile at 39.2 C and tachycardic at 127 on presentation -Suspected anaplasmosis. UTI ruled out. Supportive findings: Leucopenia, Thrombocytopenia +, PS- Rare inclusion suspicious for Anaplasma Phagocytophilum. -Empirically was on IV Rocephin, Doxycycline x Day 2 . Discontinued IV Rocephin as no UTI -Blood cx x 2 - Neg, Urine cx - Neg -ID on board PLAN: Doxycycline 100 mg PO BID x 21 days total (Day 3) per ID. Follow up Lymes Western blot, HSV, CMV, EBV, Parvovirus, Antimitochondrial, anti-smooth muscle antibody, trans-glutamine antibody, celiac disease, IgA testing (2) Anaplasmosis: History of tick bites, most recently at the beginning of July Anaplasmosis: Supportive findings: Leucopenia, Thrombocytopenia +, PS- Rare inclusion suspicious for Anaplasma Phagocytophilum. -Anaplasma DNA and Ehlrlichia serology - Pending -Transaminitis, acute kidney injury and diffuse inflammation on CT abd/pelvis including possible duodenitis, pancreatitis, infectious or inflammatory pneumonitis, mildly prominent hilar and subcarinal adenopathy, likely reactive, cardiomegaly with trace pericardial effusion and splenomegaly. Likely secondary to anaplasmosis -Continue Doxycycline - day 321. Follow Lymes test, anaplasmosis DNA -ID consulted- signed off (3) EUSEBIA (acute kidney injury): Resolving Cr elevated at 2.01 (baseline Cr low-mid 1s) , now down to 1s -In setting of anaplasmosis, poor PO intake -IV fluids. Avoid nephrotoxic agents . Ok to discontinue IVF -Monitor (4) Transaminitis: Trending down Tbili of 5.2 with direct bili 4.1, indicating conjugated etiology -AST 137, ALT: 177, Alk phos: 506 (normal LFTS as of Nov 2017). INR wnl on presentation -Likely due to anaplasmosis. -GB ultrasound with No duct dilation, no acute sonographic abnormality is identified in the right upper quadrant. No gallstones are seen. Hepatomegaly and hepatic steatosis. -MRCP- Duodenitis, No dilation - GI: Acute hepatitis panel- neg, RANDAL, Antimitochondrial, anti-smooth muscle, trans-glutamine, celiac disease, IgA- ordered - pending results (5) Type 1 diabetes: HBA1C - 7.5 -Has insulin pump at home -Glycemic consult for pump management (6) HTN (hypertension): Mildly elevated BP -Holding losartan in setting of EUSEBIA (7) Allergic rhinitis: Singulair, Zyrtec, Flonase DVT Ppx: SCDs in setting of acute thrombocytopenia Code status: FULL PCP: Akash Dispo: Medical management in progress Likely discharge in 1-2 days Updated by bedside Subjective Patient is feeling much better. Still has weakness, fatigue, but overall improving. No nausea, vomiting. No diarrhea. Tolerating diet well Now on room air, saturating 93% Ambulating in hallway Physical Exam Physical Exam: GENERAL- AAOX3, No acute distress; OBESE + LUNGS- Air entry bilaterally decreased. No wheezing, rhonchi HEART- Regular rate and rhythm. No murmurs ABDOMEN- Soft, non tender, mild distension, Bowel sounds heard. EXTREMITIES- Good peripheral pulses, no edema Results & Data Vital Signs (Past 12 Hours) Vital Signs Temp Pulse Pulse Resp BP Pulse Ox 09/28/18 12:23 37.3 C 101 H 18 157/84 H 93 09/28/18 07:30 37.1 C 102 H 18 150/90 H 95 09/28/18 07:10 109 H 09/28/18 04:00 36.8 C 104 H 16 149/93 H 97
--- NOTE | 2018-09-28 14:01 | Gastroenterology Progress Note ---
Date of Service September 28, 2018 Subjective Pt feels well and is without complaint. His VS are stable. On exam, his abd is soft and NT. His LFT's cont to improve. MRCP shows duodenitis A/P: Elevated LFT's - Likely related to Anasplasmosis, improving with Doxy. Cont to follow daily while inpt. Diet as tolerated. Duodenitis - Unclear etiology; I would not expect this with Anaplasmosis infection. Possibly related to NSAID use. I have recommended EGD prior to discharge, but pt is not sure if he wants to undergo this. Will discuss further with him in am. Results & Data Vital Signs (Past 12 Hours) Vital Signs Temp Pulse Pulse Resp BP Pulse Ox 09/28/18 12:23 37.3 C 101 H 18 157/84 H 93 09/28/18 07:30 37.1 C 102 H 18 150/90 H 95 09/28/18 07:10 109 H 09/28/18 04:00 36.8 C 104 H 16 149/93 H 97
[2018-09-28] MEDS: MONTELUKAST SODIUM 10 MG TABLET PO SCH (21:03)
[2018-09-29] MEDS ORDERED: COUGH DROP (SUGAR FREE) LOZ 24 LOZ/1 BOX BUCCAL PRN (01:37)
[2018-09-29] MEDS: DOXYCYCLINE HYCLATE 100 MG in DEXTROSE 5% 100 ML IV SCH (01:45)
[2018-09-29 07:40] LABS: Hematocrit (blood only) 34.2 % (42-52); Mean Corpuscular Hgb Conc 35.1 g/dL (32-36); Mean Corpuscular Volume 86.1 fL (80-100); Mean Platelet Volume 11.3 fL (7.4-10.4); Platelet Count 136 K/uL (130-400); RDW Standard Deviation 44.5 fL (36.4-46.3); Red Blood Count 3.97 M/uL (4.7-6.1); White Blood Count 8.56 K/uL (4.8-10.8)
[2018-09-29 07:41] LABS: BUN Creatinine Ratio 15.9 (10-20); Calcium 8.2 mg/dl (8.5-10.1); Creatinine Clr Calc Pharmacy 89.4 ml/min; Est GFR (Non-African American) 75.9; Platelet Estimate Decreased (Normal); Potassium 3.3 mmol/L (3.5-5.1)
[2018-09-29 07:44] LABS: Albumin Globulin Ratio 0.5 (0.9-2); Bilirubin,Total 1.9 mg/dl (0.2-1); Globulin 4.1 gm/dl (2.5-4.0); Total Protein 6.1 gm/dl (6.4-8.2)
[2018-09-29] MEDS: INSULIN PUMP SC SCH (08:32)
[2018-09-29] MEDS: MULTIVITAMIN TAB PO SCH (09:03)
[2018-09-29] MEDS: AMLODIPINE BESYLATE 5 MG TAB PO SCH (09:03)
[2018-09-29] MEDS: FLUTICASONE PROPIONATE NA SPR 16 GM BTL NAE SCH (09:04)
--- NOTE | 2018-09-29 09:37 | Pharmacy Report ---
Pharmacy Glycemic Short Note 2 - Date of Service September 29, 2018 - Glycemic Short BSG Results (Last 24 hours): 09/28/18 09/28/18 09/28/18 11:36 16:39 20:36 Glucose POC Glucose 190 H 143 H 151 H 09/29/18 09/29/18 06:30 07:02 Glucose 117 H POC Glucose 128 H A/P: 09/29/18 * Type 1 diabetic admitted for anaplasmosis, Doxycycline 100mg BID x 21 days. Rocephin d/c'd, UTI ruled out. * Blood sugars at goal on home insulin pump, continue. * GI recommends EGD for duodenitis. 09/27/18 * Spoke w/ pt and SI bedside this AM. Pt strongly prefers to use his own insulin pump. I did d/w them that if insulin requirements change acutely pharmacy will assume control of his insulin regimen. Pump reservoir was successful repleted this AM with home supply of Admelog. CGM rotated appropriately. * I stressed that CGM's are not FDA approved for inpt glycemic management. * Pt NPO per GI consult. Given his type 1 diabetes and endogenous insulin resistance we will not reduce his metabolic rate. PLAN FOR DISCHARGE: * to be determined. would probably be best managed with [facility] on discharge.
--- NOTE | 2018-09-29 10:12 | Hospitalist Progress Note ---
Date of Service September 29, 2018 Assessment & Plan (1) Sepsis: (2) Anaplasmosis: History of tick bites, most recently at the beginning of July Anaplasmosis: Supportive findings: Leucopenia, Thrombocytopenia +, PS- Rare inclusion suspicious for Anaplasma Phagocytophilum. -Anaplasma DNA and Ehlrlichia serology - Pending -Transaminitis, acute kidney injury and diffuse inflammation on CT abd/pelvis including possible duodenitis, pancreatitis, infectious or inflammatory pneumonitis, mildly prominent hilar and subcarinal adenopathy, likely reactive, cardiomegaly with trace pericardial effusion and splenomegaly. Likely secondary to anaplasmosis -Continue Doxycycline - day 07/11. Follow Lymes test, anaplasmosis DNA -ID consulted- signed off This is a 48 yo M with a PMH of DM I on insulin pump and HTN who presents with abdominal bloating, fever and fatigue x 4 days and was found to have sepsis 2/2 suspected anaplasmosis and possible UTI. SEPSIS SECONDARY TO ANAPLASMOSIS : Met sepsis criteria on admission- Fever 39.2 F, Tachycardia with HR in 120s --> Resolved Supportive findings: Leucopenia, Thrombocytopenia +, PS- Rare inclusion suspicious for Anaplasma Phagocytophilum. Anaplasmosis DNA test- pending -Empirically was on IV Rocephin, Doxycycline x Day 2 . Discontinued IV Rocephin as no UTI -Continue with Doxycycline 100 mg PO BID (Day 08/11) per ID. -Blood cx x 2 - Neg, Urine cx - Neg -ID signed off -Follow up- Lyme's Western Blot test, Anaplasmosis DNA test- pending (3) EUSEBIA (acute kidney injury): Resolved Cr elevated at 2.01 (baseline Cr low-mid 1s) , now down to 1s back to baseline -In setting of anaplasmosis, poor PO intake -S/P IVF (4) Transaminitis: Secondary to Anaplasmosis --> Trending down T bilirubin of 5.2 with direct bili 4.1, indicating conjugated etiology--> Trending down -AST 137, ALT: 177, Alk phos: 506 (normal LFTS as of Nov 2017). INR wnl on presentation -On discharge: TB 1.9, AST 78, ALT 121, ALP 426 -Work up- GB ultrasound with No duct dilation, no acute sonographic abnormality is identified in the right upper quadrant. No gallstones are seen. Hepatomegaly and hepatic steatosis. -MRCP- Duodenitis, No dilation - GI:Follow up- Acute hepatitis panel- neg, RANDAL, Antimitochondrial, anti-smooth muscle, trans-glutamine, celiac disease, IgA- ordered - pending results (5) Duodenitis: Secondary to Anaplasmosis -Duodenitis per CT scan/MRCP -Clinically asymptomatic now -Tolerating PO diet well (6) Type 1 diabetes: HBA1C - 7.5 -Has insulin pump at home -Glycemic consult for pump management (7) HTN (hypertension): Mildly elevated BP -Holding losartan in setting of EUSEBIA --> Ok to restart (8) Allergic rhinitis: Singulair, Zyrtec, Flonase DVT Ppx: SCDs in setting of acute thrombocytopenia Code status: FULL PCP: Dr Bustos Dispo: Eager to be discharged home Cleared by ID for discharge Ok to discharge home today updated and answered all questions by bedside. Subjective Patient is feeling significantly better and back to baseline. Fatigues has resolved. No nausea, vomiting. No diarrhea. Tolerating diet well with no issues Now on room air, saturating 93% Ambulating in hallway Physical Exam Physical Exam: GENERAL- AAOX3, No acute distress; OBESE + LUNGS- Air entry bilaterally decreased. No wheezing, rhonchi HEART- Regular rate and rhythm. No murmurs ABDOMEN- Soft, non tender, mild distension, Bowel sounds heard. EXTREMITIES- Good peripheral pulses, no edema Results & Data Vital Signs (Past 12 Hours) Vital Signs Temp Pulse Pulse Resp BP Pulse Ox 09/29/18 07:10 119 H 09/29/18 07:02 36.9 C 101 H 16 152/91 H 93 09/29/18 04:13 36.5 C 103 H 16 141/91 H 98 09/28/18 23:58 101 H 09/28/18 22:50 36.6 C 103 H 16 153/88 H 95
--- NOTE | 2018-09-29 10:17 | Discharge Summary ---
Date of Service September 29, 2018 Admission HPI Per Admitting Provider This is a 48yo M with a PMH of DM I on insulin pump and HTN who presents with abdominal bloating, fever and fatigue x 4 days. Patient was in normal state of health until this past Sunday, when he developed abdominal bloating, subjective fever and chills and fatigue. Denies any kendall abdominal pain but just feels a fullness. Has had bowel movements but they have been smaller than normal. Poor p.o. intake and reduced appetite. In the past 3 days, endorses 2 episodes of bilious vomit. Denies any hematemesis, melena or hematochezia. Does live in the [facility] and endorses multiple tick bites, the most recent occurring at the beginning of July. Denies rash, but states that when nursing evaluated him today they noticed a rash on his lower extremities. Denies any history of liver disease or gallbladder disease. Denies lightheadedness, headache, chest pain, palpitations, shortness of breath, abdominal pain, dysuria, hematuria or constipation. Patient found to be febrile at 39 C and tachycardic at 127. Platelets low at 40, creatinine elevated at 2.01 (baseline mid-1s), tbili of 5.2, AST of 137, ALT of 177, alk phos of 506. Lipase wnl. Peripheral blood smear with rare inclusion suspicious for anaplasma. Anaplasma DNA and ehlrlichia serology ordered as well as blood and urine cultures. Started on Rocephin and doxy in the ED. CT abd/pelvis with diffuse inflammation including evidence of piossible duodenitis, pancreatitis, infectious or inflammatory pneumonitis, mildly prominent hilar and subcarinal adenopathy, likely reactive, cardiomegaly with trace pericardial effusion and splenomegaly. Principal Diagnosis 1. Sepsis 2. Anaplasmosis 3. EUSEBIA secondary to # 2 4. Transaminitis secondary to # 2 5. Duodenitis secondary to # 2 6. High risk for tick bite exposure SECONDARY DIAGNOSIS ON DISCHARGE 1. HTN 2. Obesity Discharge Exam GENERAL- AAOX3, No acute distress; OBESE + LUNGS- Air entry bilaterally decreased. No wheezing, rhonchi HEART- Regular rate and rhythm. No murmurs ABDOMEN- Soft, non tender, mild distension, Bowel sounds heard. EXTREMITIES- Good peripheral pulses, no edema Discharge Data Allergies Allergy/AdvReac Type Severity Reaction Status Date / Time Penicillins Allergy Severe Hives Unverified 09/26/18 12:26 Consultations 09/26/18 14:59 ED Decision to Admit Stat 09/26/18 17:43 Consult Gastroenterology Routine Consult Infectious Diseases Routine Ordered Studies 09/26/18 13:39 CT abd pelvis wo con Stat 09/26/18 16:00 US gallbladder Routine 09/27/18 12:39 MR MRCP Routine Hospital Course (1) Sepsis: (2) Anaplasmosis: SEPSIS SECONDARY TO ANAPLASMOSIS : Met sepsis criteria on admission- Fever 39.2 F, Tachycardia with HR in 120s --> Resolved Supportive findings: Leucopenia, Thrombocytopenia +, PS- Rare inclusion suspicious for Anaplasma Phagocytophilum. Anaplasmosis DNA test- pending Hx of multiple tick bite exposure -Empirically was on IV Rocephin, Doxycycline x Day 2 . Discontinued IV Rocephin as no UTI -Continue with Doxycycline 100 mg PO BID (Day 08/11) per ID. -Blood cx x 2 - Neg, Urine cx - Neg -ID signed off -Follow up- Lyme's Western Blot test, Anaplasmosis DNA test, Ehrlichia Test - pending (3) EUSEBIA (acute kidney injury): Resolved Cr elevated at 2.01 (baseline Cr low-mid 1s) , now down to 1s back to baseline -In setting of anaplasmosis, poor PO intake -S/P IVF (4) Transaminitis: Secondary to Anaplasmosis --> Trending down T bilirubin of 5.2 with direct bili 4.1, indicating conjugated etiology--> Trending down -AST 137, ALT: 177, Alk phos: 506 (normal LFTS as of Nov 2017). INR wnl on presentation -On discharge: TB 1.9, AST 78, ALT 121, ALP 426 -Work up- GB ultrasound with No duct dilation, no acute sonographic abnormality is identified in the right upper quadrant. No gallstones are seen. Hepatomegaly and hepatic steatosis. -MRCP- Duodenitis, No dilation - GI:Follow up- Acute hepatitis panel- neg, RANDAL, Antimitochondrial, anti-smooth muscle, trans-glutamine, celiac disease, IgA- ordered - pending results (5) Duodenitis: Secondary to Anaplasmosis -Duodenitis per CT scan/MRCP -Clinically asymptomatic now -Tolerating PO diet well (6) Type 1 diabetes: HBA1C - 7.5 -Has insulin pump at home -Glycemic consult for pump management (7) HTN (hypertension): Mildly elevated BP -Holding losartan in setting of EUSEBIA --> Ok to restart (8) Allergic rhinitis: Singulair, Zyrtec, Flonase DVT Ppx: SCDs in setting of acute thrombocytopenia Code status: FULL PCP: Dr Bustos Dispo: Eager to be discharged home Cleared by ID for discharge Ok to discharge home today updated and answered all questions by bedside. Total Time Total Time Spent Total Time Spent (In Minutes): 38 minutes Discharge Plan Discharge Items Patient Disposition: Home - Self-Care Reason For Visit: SEPSIS 2/2 SUSPECTED ANALASMOSIS,EUSEBIA Discharge Diagnosis: Sepsis secondary to Anaplasmosis with Acute kidney injury, increased liver enzymes, duodenitis Discharge Goals: Decrease discomfort and Therapeutic intervention Activity: Resume your previous activity Non-emergency contact: Primary Care Provider Call non-emergency contact if: your symptoms worsen Follow-up/Referrals: Ziyad Bustos MD [Primary Care Provider] - (Scheduling office is closed today. We will call you for appt date and time on Sunday) Diet: Heart Healthy, Low Fat and Low Sodium (2gm) Addtl Provider Instructions: MEDICATION CHANGES New medication-Doxycycline 100 mg PO twice a day for 18 days to complete 21 day course for anaplasmosis Prescriptions: New doxycycline hyclate 100 mg capsule 100 mg PO BID 21 Days Qty: 42 RF: 0 Continued multivitamin Tablet 1 tab PO QAM RF: 0 acetaminophen [Tylenol] 325 mg Tablet 325 mg PO Q6H PRN (Reason: Pain) RF: 0 montelukast 10 mg Tablet 10 mg PO QAM RF: 0 apple cider vinegar 500 mg Tablet PO QAM RF: 0 ondansetron HCl [Zofran] 4 mg Tablet 4 mg PO Q8H PRN (Reason: Nausea) RF: 0 benzonatate [Tessalon Perles] 100 mg Capsule 100 mg PO TID PRN (Reason: Cough) RF: 0 losartan 100 mg Tablet 100 mg PO DAILY RF: 0 fluticasone propionate [Flonase Allergy Relief] 50 mcg/actuation [place],Suspension 2 spray INTRANASAL DAILY RF: 0 MiniMed 530G Insulin Pump Misc RF: 0 Zyrtec 10 mg Capsule 10 mg PO DAILY PRN (Reason: Allergy Symptoms) RF: 0 Discontinued simvastatin 20 mg Tablet 20 mg PO PM RF: 0 Stand-Alone Forms: Call Back Authorization, [facility]/Other Patient Handouts: Doxycycline Monohydrate Oral tablet Discharge Orders: Discharge Order (Routine); Ordered 09/29/18 Ordered By: aKtia Montemayor Admission Data Admit Date/Time: 09/26/18 16:00 Attending Provider: Katia Montemayor Admit Provider: Harjit Nolan Primary Care Provider: Ziyad Bustos Other Providers: Harjit Nolan ; Joann Casas ; Candis Saleh Service: Telemetry Other Pending Studies at Discharge: Yes (Lymes, Ehrlichia, HSV, Anti smooth, Anti mitochondrial study- collected) Studies:: PENDING RESULTS as above
[2018-10-01 11:50] LABS: Ehrlichia chaff IgG Ab <1:64 (<1:64); Ehrlichia chaff IgM Ab <1:20 (<1:20)
[2018-10-01 16:19] LABS: Anti Nuclear Antibody Screen POSITIVE (NEGATIVE)
[2018-10-02 00:10] LABS: 18KDIGG Band NONREACTIVE (NONREACTIVE); 23KDIGG Band NONREACTIVE (NONREACTIVE); 23KDIGM Band REACTIVE (NONREACTIVE); 28KDIGG Band NONREACTIVE (NONREACTIVE); 30KDIGG Band NONREACTIVE (NONREACTIVE); 39KDIGG Band NONREACTIVE (NONREACTIVE); 39KDIGM Band NONREACTIVE (NONREACTIVE); 41KDIGG Band REACTIVE (NONREACTIVE); 41KDIGM Band NONREACTIVE (NONREACTIVE); 45KDIGG Band NONREACTIVE (NONREACTIVE); 58KDIGG Band NONREACTIVE (NONREACTIVE); 66KDIGG Band REACTIVE (NONREACTIVE); 93KDIGG Band NONREACTIVE (NONREACTIVE); Lyme Antibodies, WB IgG NEGATIVE (NEGATIVE); Lyme Antibodies, WB IgM NEGATIVE (NEGATIVE)
[2018-10-02 10:47] LABS: ANA Pattern HOMOGENEOUS
[2018-10-02 15:35] LABS: CMV IgG Antibody <0.60 U/ML; CMV IgM Antibody <30.00 Au/mL; Ceruloplasmin 43 MG/DL (18-36); EBV Virus Capsid Ag IgG Ab >750.00 U/ML; Herpes Simplex Ab IgG-1 < 0.90 INDEX (< 0.90); Herpes Simplex Ab IgG-2 < 0.90 INDEX (< 0.90); IgA Serum 283 mg/dL (81-463); Tis Trans IgA 1 U/mL (<4)
== END 2018-09-29 11:08 | disposition home or self-care (01) | DRG 872 ==
LOC: ED 11:27 → 2E 16:00

== ENCOUNTER 2019-06-21 21:30 | Observation (INO) ==
[2019-06-21 22:16] LABS: Basophils # (auto) 0.03 K/uL (0-0.2); Basophils % (auto) 0.3 %; Eosinophils % (auto) 2.2 %; Hemoglobin 14.6 g/dL (14.0-18.0); Immature Granulocytes # (auto) 0.07 K/uL (0.00-0.02); Immature Granulocytes % (auto) 0.8 %; Lymphocytes # (auto) 2.02 K/uL (1.2-3.4); Lymphocytes % (auto) 22.2 %; Mean Corpuscular Hemoglobin 30.7 pg (25-34); Mean Corpuscular Hgb Conc 34.8 g/dL (32-36); Mean Corpuscular Volume 88.4 fL (80-100); Mean Platelet Volume 9.5 fL (7.4-10.4); Monocytes # (auto) 0.81 K/uL (0.11-0.59); Monocytes % (auto) 8.9 %; Neutrophils # (auto) 5.96 K/uL (1.4-6.5); Neutrophils % (auto) 65.6 %; Platelet Count 351 K/uL (130-400); RDW Coefficient of Variation 12.5 % (11.5-14.5); RDW Standard Deviation 40.3 fL (36.4-46.3); Red Blood Count 4.75 M/uL (4.7-6.1); White Blood Count 9.09 K/uL (4.8-10.8)
[2019-06-21 22:28] LABS: Partial Thromboplastin Time 25.9 Seconds (21.0-31.0)
--- NOTE | 2019-06-21 22:33 | CT Scan Report ---
CT head/brain wo con CLINICAL HISTORY: 49 years-old Male with Stroke evaluation . Acute strokelike symptoms TECHNIQUE: Multiple axial CT images of the head were obtained without contrast. A dose lowering tech nique was utilized adhering to the principles of ALARA. CT DOSE: 537.48 mGy.cm COMPARISON: None. FINDINGS: No acute intracranial hemorrhage, midline shift, intracranial mass, hydrocephalus, territorial ischem ia or abnormal extra-axial collection. Cerebral vascular calcifications are noted. Indeterminate 8 mm hypodense focus within the periventricular right frontal lobe, image 13 series 2 may reflect a remot e lacunar infarct. Indeterminate ill-defined 6 mm hypodensity of the left rosa, image 8 series 2. The calvarium is intact. The paranasal sinuses, mastoid air cells, and middle ear cavities are clear . IMPRESSION: 1. No acute intracranial hemorrhage, midline shift or acute territorial infarct. 2. Ill-defined 6 mm hypodense focus of the left rosa possibly reflects an age-indeterminate lacunar i nfarct. Additionally, there is a probable subcentimeter remote lacunar infarct within the periventric ular right frontal lobe. ACT 112: Negative or not required by law. The above report was generated using voice recognition software. It may contain grammatical, syntax o r spelling errors. Electronically signed by: Monty Weller M.D. 06/21/2019 10:31 PM
[2019-06-21 22:34] LABS: Alanine Aminotransferase 41 U/L (12-78); Aspartate Aminotransferase 21 U/L (15-37); BUN Creatinine Ratio 17.7 (10-20); Blood Urea Nitrogen 22 mg/dl (7-18); Calcium 8.9 mg/dl (8.5-10.1); Carbon Dioxide 23 mmol/L (21-32); Chloride 106 mmol/L (98-107); Creatinine Clr Calc Pharmacy 85.5 ml/min; Est GFR (African American) 79.7; Est GFR (Non-African American) 68.8; Glucose 188 mg/dl (70-99); Magnesium 1.9 mg/dl (1.8-2.4); Potassium 3.6 mmol/L (3.5-5.1); Sodium 137 mmol/L (136-145)
[2019-06-21 22:39] LABS: Albumin Globulin Ratio 0.7 (0.9-2); Alkaline Phosphatase 108 U/L (45-117); Bilirubin,Total 0.2 mg/dl (0.2-1); Globulin 4.6 gm/dl (2.5-4.0); Total Protein 7.6 gm/dl (6.4-8.2); Troponin I < 0.015 ng/ml (0-0.045)
[2019-06-21] MEDS ORDERED: LOSARTAN POTASSIUM 50 MG TAB PO STA (23:02)
[2019-06-21 23:05] LABS: Lyme Ab IgG w/WB Rflx Negative (Negative)
[2019-06-21 23:06] LABS: Lyme Ab IgM w/WB Rflx Negative (Negative)
[2019-06-21] MEDS ORDERED: ASPIRIN CHEW 324 MG PO STA (23:33)
--- NOTE | 2019-06-21 23:33 | Emergency Department Note ---
Entered by Georgia Mojica acting as a scribe for Roby Lockwood MD History of Present Illness General Chief complaint: Neuro Symptoms/Deficit Time Seen by Provider: 06/21/19 21:42 Source: patient Limitations: no limitations History of Present Illness Onset (ago): hour(s) (29) Location: face Pain Consistency: + constant Quality: + other (weakness) Associated symptoms: no chest pain and no shortness of breath The patient is a 49 year old male who presents to the Emergency Room with complaints of constant right-sided facial weakness and drooping beginning yesterday at 17:00, about 29 hours ago. He describes the weakness to be in his lips, cheek, and eye. The patient denies any rash, abdominal pain, chest pain, SOB, and ear pain. He denies any difficulty moving the extremities. The patient notes that he has no history of similar symptoms, and he had no known recent tick contact. 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 The patient notes a history of anaplasmosis. Home Medications Home Medications Medication Instructions Recorded Confirmed Type MiniMed 530G Insulin Pump 09/26/18 09/26/18 History acetaminophen [Tylenol] 325 mg PO Q6H PRN 09/26/18 06/21/19 History losartan 100 mg PO DAILY 09/26/18 06/21/19 History montelukast 10 mg PO QAM 09/26/18 06/21/19 History multivitamin 1 tab PO QAM 09/26/18 06/21/19 History amlodipine 10 mg PO DAILY 06/21/19 06/21/19 History cetirizine 10 mg PO DAILY 06/21/19 06/21/19 History insulin lispro [Humalog U-100 0 unit CONTINUOUS SUBCUTANEOUS 06/21/19 06/21/19 History Insulin] INFUSION .CONTINUOUS loratadine 10 mg PO DAILY 06/21/19 06/21/19 History simvastatin 20 mg PO DAILY 06/21/19 06/21/19 History Allergies Allergy/AdvReac Type Severity Reaction Status Date / Time Penicillins Allergy Severe Hives Unverified 06/21/19 23:09 Past Med/Surg History Medical History Allergic rhinitis (Chronic) HTN (hypertension) (Chronic) Insulin dependent diabetes mellitus (Chronic) Surgical History H/O eye surgery (Chronic) Family History Other Colorectal cancer Coronary heart disease Cisse syndrome Social History Preferred Language: [place] Communication Ability: Effective Manager Hotel Required: No Beliefs That Will Affect Care: None Current Living Situation: Spouse Feels Safe at Home: Yes Smoking Status: Former smoker Hx Alcohol Use: Yes Alcohol type: beer Alcohol Intake Frequency: Weekly Alcohol Intake Frequency Comment: 3x / week Hx Substance Use: No Review of Systems See HPI for pertinent positives & negatives. and A total of 10 systems reviewed and were otherwise negative Physical Exam Vital Signs Vital Signs - 24 hr 06/21/19 21:34 06/21/19 21:36 06/21/19 21:42 Temperature 37.1 C Temperature Source Oral Pulse Rate 109 H 109 H 107 H Pulse Rate from SpO2 Sensor 110 H 107 H Respiratory Rate 18 18 20 Respiratory Depth Normal Blood Pressure 203/98 H 203/99 H Blood Pressure Mean 157 133 Pulse Oximetry 98 99 97 Oxygen Delivery Method Room Air Sepsis Recent Fever Within 48 Hours No Sepsis Action Taken by Nursing No Action Required 06/21/19 21:45 06/21/19 22:00 06/21/19 22:01 Temperature Temperature Source Pulse Rate 107 H 111 H 109 H Pulse Rate from SpO2 Sensor 107 H 110 H 109 H Respiratory Rate 23 20 25 H Respiratory Depth Blood Pressure 185/90 H 177/78 H Blood Pressure Mean 114 101 Pulse Oximetry 98 97 97 Oxygen Delivery Method Sepsis Recent Fever Within 48 Hours Sepsis Action Taken by Nursing 06/21/19 22:28 06/21/19 22:30 06/21/19 22:31 Temperature Temperature Source Pulse Rate 110 H 109 H 113 H Pulse Rate from SpO2 Sensor 110 H 109 H 113 H Respiratory Rate 20 24 25 H Respiratory Depth Blood Pressure 200/103 H 193/94 H Blood Pressure Mean 126 130 Pulse Oximetry 98 96 97 Oxygen Delivery Method Sepsis Recent Fever Within 48 Hours Sepsis Action Taken by Nursing 06/21/19 22:40 06/21/19 22:45 06/21/19 22:50 Temperature Temperature Source Pulse Rate 108 H 113 H 110 H Pulse Rate from SpO2 Sensor 109 H 113 H 110 H Respiratory Rate 24 23 20 Respiratory Depth Blood Pressure 201/105 H Blood Pressure Mean 141 Pulse Oximetry 97 95 97 Oxygen Delivery Method Sepsis Recent Fever Within 48 Hours Sepsis Action Taken by Nursing 06/21/19 23:00 06/21/19 23:01 06/21/19 23:10 Temperature Temperature Source Pulse Rate 116 H 116 H 111 H Pulse Rate from SpO2 Sensor 116 H 116 H 111 H Respiratory Rate 22 25 H 20 Respiratory Depth Blood Pressure 217/125 H Blood Pressure Mean 178 Pulse Oximetry 96 98 97 Oxygen Delivery Method Sepsis Recent Fever Within 48 Hours Sepsis Action Taken by Nursing 06/21/19 23:15 06/21/19 23:20 06/21/19 23:30 Temperature Temperature Source Pulse Rate 109 H 109 H 105 H Pulse Rate from SpO2 Sensor 109 H 110 H 105 H Respiratory Rate 14 23 21 Respiratory Depth Blood Pressure 168/100 H 171/94 H Blood Pressure Mean 123 107 Pulse Oximetry 96 96 96 Oxygen Delivery Method Sepsis Recent Fever Within 48 Hours Sepsis Action Taken by Nursing 06/21/19 23:31 06/21/19 23:40 06/21/19 23:45 Temperature Temperature Source Pulse Rate 105 H 104 H 104 H Pulse Rate from SpO2 Sensor 105 H 105 H 104 H Respiratory Rate 23 25 H 18 Respiratory Depth Blood Pressure 213/134 H Blood Pressure Mean 155 Pulse Oximetry 96 97 97 Oxygen Delivery Method Sepsis Recent Fever Within 48 Hours Sepsis Action Taken by Nursing 06/21/19 23:55 06/21/19 23:56 06/22/19 00:00 Temperature Temperature Source Pulse Rate 105 H 103 H 107 H Pulse Rate from SpO2 Sensor 105 H 103 H 107 H Respiratory Rate 18 21 21 Respiratory Depth Blood Pressure 169/105 H 157/86 H Blood Pressure Mean 129 110 Pulse Oximetry 96 96 97 Oxygen Delivery Method Sepsis Recent Fever Within 48 Hours Sepsis Action Taken by Nursing 06/22/19 00:01 06/22/19 00:10 06/22/19 00:15 Temperature Temperature Source Pulse Rate 107 H 104 H 105 H Pulse Rate from SpO2 Sensor 107 H 104 H 105 H Respiratory Rate 23 16 19 Respiratory Depth Blood Pressure 156/88 H Blood Pressure Mean 118 Pulse Oximetry 97 98 97 Oxygen Delivery Method Sepsis Recent Fever Within 48 Hours Sepsis Action Taken by Nursing 06/22/19 00:20 06/22/19 00:27 06/22/19 00:30 Temperature Temperature Source Pulse Rate 108 H 105 H 96 H Pulse Rate from SpO2 Sensor 108 H 96 H Respiratory Rate 18 18 Respiratory Depth Blood Pressure 156/88 H 172/105 H Blood Pressure Mean 121 Pulse Oximetry 97 96 Oxygen Delivery Method Sepsis Recent Fever Within 48 Hours Sepsis Action Taken by Nursing 06/22/19 00:31 06/22/19 00:40 06/22/19 00:45 Temperature Temperature Source Pulse Rate 94 H 95 H 96 H Pulse Rate from SpO2 Sensor 94 H 95 H 96 H Respiratory Rate 19 17 18 Respiratory Depth Blood Pressure 169/110 H Blood Pressure Mean 135 Pulse Oximetry 97 97 97 Oxygen Delivery Method Sepsis Recent Fever Within 48 Hours Sepsis Action Taken by Nursing 06/22/19 00:50 06/22/19 01:00 06/22/19 01:01 Temperature Temperature Source Pulse Rate 97 H 96 H 98 H Pulse Rate from SpO2 Sensor 97 H 97 H 97 H Respiratory Rate 18 20 18 Respiratory Depth Blood Pressure 159/110 H Blood Pressure Mean 132 Pulse Oximetry 97 98 97 Oxygen Delivery Method Sepsis Recent Fever Within 48 Hours Sepsis Action Taken by Nursing 06/22/19 01:10 06/22/19 01:15 Temperature Temperature Source Pulse Rate 96 H 97 H Pulse Rate from SpO2 Sensor 96 H 98 H Respiratory Rate 22 23 Respiratory Depth Blood Pressure 163/107 H Blood Pressure Mean 130 Pulse Oximetry 98 97 Oxygen Delivery Method Sepsis Recent Fever Within 48 Hours Sepsis Action Taken by Nursing General: Non-ill appearing middle-aged male in no acute distress. HEENT: Normal cephalic atraumatic. Right sided facial weakness. Unable to close right eye. Weakness of the forehead. Pupils are equal round and reactive to lig ht. Extraocular movements are intact. Oropharynx is pink with moist mucous membranes. No swelling of the mouth lips or tongue. Neck: Supple with a midline trachea. No meningeal signs or stiffness, no JVD or bruits. No Stridor. Chest: Clear to auscultation bilaterally. No wheezes or rhonchi. No increased work of breathing. Heart: regular rate and rhythm. Abdomen: Soft nontender, nondistended without rebound guarding or rigidity. Extremities: No cyanosis clubbing or edema. No calf tenderness or asymmetry Spine/Back. Non tender to palpation. No CVA tenderness Skin: Good turgor without rashes. Neurologic exam: Cranial nerves two through 12 are intact. Motor and sensation are intact and symmetrical throughout. Course Course 2143: The patient was evaluated in room B02. A complete history and physical exam was performed. 2252: I updated the patient on his results. 6: I spoke with Dr. Covarrubias, [facility] hospitalist, about the patient's case. He will further evaluate the patient. 2335: I checked on the patient, and he was stable. Administered Medications Discontinued Medications Aspirin (Aspirin) 324 mg PO NOW STA Stop: 06/21/19 23:34 Last Admin: 06/21/19 23:40 Dose: 324 mg Documented by: [id number] Losartan Potassium (Cozaar) 100 mg PO ONE STA Stop: 06/21/19 23:03 Last Admin: 06/21/19 23:23 Dose: 100 mg Documented by: [id number] Metoprolol Tartrate (Lopressor) 2.5 mg IV NOW STA Stop: 06/21/19 23:51 Last Admin: 06/22/19 00:27 Dose: 2.5 mg Documented by: [id number] Medical Decision Making Differential Diagnosis The differential diagnosis includes: Elberta palsy, CVA, infection, and electrolyte or metabolic abnormality Medical Records Attestation: I reviewed the patient's medical records. Home Medications Current Medication List: was personally reviewed by me Laboratory Data Attestation: I reviewed the patient's lab results. Result diagrams: 06/21/19 22:05 06/21/19 22:05 Lab Results 06/21/19 06/21/19 06/21/19 Range/Units 22:05 22:05 22:05 WBC 9.09 (4.8-10.8) K/uL RBC 4.75 (4.7-6.1) M/uL Hgb 14.6 (14.0-18.0) g/dL Hct 42.0 (42-52) % MCV 88.4 (80-100) fL MCH 30.7 (25-34) pg MCHC 34.8 (32-36) g/dL RDW Std Deviation 40.3 (36.4-46.3) fL RDW Coeff of Negrito 12.5 (11.5-14.5) % Plt Count 351 (130-400) K/uL MPV 9.5 (7.4-10.4) fL Immature Gran % (Auto) 0.8 % Neut % (Auto) 65.6 % Lymph % (Auto) 22.2 % [place] % (Auto) 8.9 % Eos % (Auto) 2.2 % Baso % (Auto) 0.3 % Immature Gran # (Auto) 0.07 H (0.00-0.02) K/uL Neut # (Auto) 5.96 (1.4-6.5) K/uL Lymph # (Auto) 2.02 (1.2-3.4) K/uL [place] # (Auto) 0.81 H (0.11-0.59) K/uL Eos # (Auto) 0.20 (0-0.5) K/uL Baso # (Auto) 0.03 (0-0.2) K/uL PT 10.0 (9.0-12.0) Seconds INR 1.0 (0.9-1.1) APTT 25.9 (21.0-31.0) Seconds PTT Ratio 1.0 Sodium (136-145) mmol/L Potassium (3.5-5.1) mmol/L Chloride (98-107) mmol/L Carbon Dioxide (21-32) mmol/L Anion Gap (3-11) BUN (7-18) mg/dl Creatinine (0.6-1.4) mg/dl Est Cr Clr Drug Dosing ml/min Est GFR ( Amer) Est GFR (Non-Af Amer) BUN/Creatinine Ratio (10-20) Glucose (70-99) mg/dl Calcium (8.5-10.1) mg/dl Magnesium (1.8-2.4) mg/dl Total Bilirubin (0.2-1) mg/dl AST (15-37) U/L ALT (12-78) U/L Alkaline Phosphatase (45-117) U/L Troponin I (0-0.045) ng/ml Total Protein (6.4-8.2) gm/dl Albumin (3.4-5.0) gm/dl Globulin (2.5-4.0) gm/dl Albumin/Globulin Ratio (0.9-2) TSH (0.300-4.500) uIu/ml Lyme Disease IgG Ab Negative (Negative) Lyme Disease IgM Ab Negative (Negative) 06/21/19 Range/Units 22:05 WBC (4.8-10.8) K/uL RBC (4.7-6.1) M/uL Hgb (14.0-18.0) g/dL Hct (42-52) % MCV (80-100) fL MCH (25-34) pg MCHC (32-36) g/dL RDW Std Deviation (36.4-46.3) fL RDW Coeff of Negrito (11.5-14.5) % Plt Count (130-400) K/uL MPV (7.4-10.4) fL Immature Gran % (Auto) % Neut % (Auto) % Lymph % (Auto) % [place] % (Auto) % Eos % (Auto) % Baso % (Auto) % Immature Gran # (Auto) (0.00-0.02) K/uL Neut # (Auto) (1.4-6.5) K/uL Lymph # (Auto) (1.2-3.4) K/uL [place] # (Auto) (0.11-0.59) K/uL Eos # (Auto) (0-0.5) K/uL Baso # (Auto) (0-0.2) K/uL PT (9.0-12.0) Seconds INR (0.9-1.1) APTT (21.0-31.0) Seconds PTT Ratio Sodium 137 (136-145) mmol/L Potassium 3.6 (3.5-5.1) mmol/L Chloride 106 (98-107) mmol/L Carbon Dioxide 23 (21-32) mmol/L Anion Gap 8.0 (3-11) BUN 22 H (7-18) mg/dl Creatinine 1.24 (0.6-1.4) mg/dl Est Cr Clr Drug Dosing 85.5 ml/min Est GFR ( Amer) 79.7 Est GFR (Non-Af Amer) 68.8 BUN/Creatinine Ratio 17.7 (10-20) Glucose 188 H (70-99) mg/dl Calcium 8.9 (8.5-10.1) mg/dl Magnesium 1.9 (1.8-2.4) mg/dl Total Bilirubin 0.2 (0.2-1) mg/dl AST 21 (15-37) U/L ALT 41 (12-78) U/L Alkaline Phosphatase 108 (45-117) U/L Troponin I < 0.015 (0-0.045) ng/ml Total Protein 7.6 (6.4-8.2) gm/dl Albumin 3.0 L (3.4-5.0) gm/dl Globulin 4.6 H (2.5-4.0) gm/dl Albumin/Globulin Ratio 0.7 L (0.9-2) TSH 2.730 (0.300-4.500) uIu/ml Lyme Disease IgG Ab (Negative) Lyme Disease IgM Ab (Negative) Imaging Data Radiologist's Impression: Radiology results as stated below per my review and the radiologist's interpretation: CT head/brain wo con CLINICAL HISTORY: 49 years-old Male with Stroke evaluation . Acute strokelike symptoms TECHNIQUE: Multiple axial CT images of the head were obtained without contrast. A dose lowering technique was utilized adhering to the principles of ALARA. CT DOSE: 537.48 mGy.cm COMPARISON: None. FINDINGS: No acute intracranial hemorrhage, midline shift, intracranial mass, hydrocephalus, territorial ischemia or abnormal extra-axial collection. Cerebral vascular calcifications are noted. Indeterminate 8 mm hypodense focus within the periventricular right frontal lobe, image 13 series 2 may reflect a remote lacunar infarct. Indeterminate ill-defined 6 mm hypodensity of the left rosa, image 8 series 2. The calvarium is intact. The paranasal sinuses, mastoid air cells, and middle ear cavities are clear. IMPRESSION: 1. No acute intracranial hemorrhage, midline shift or acute territorial infarct. 2. Ill-defined 6 mm hypodense focus of the left rosa possibly reflects an age- indeterminate lacunar infarct. Additionally, there is a probable subcentimeter remote lacunar infarct within the periventricular right frontal lobe. ACT 112: Negative or not required by law. The above report was generated using voice recognition software. It may contain grammatical, syntax or spelling errors. Electronically signed by: Monty Weller M.D. 06/21/2019 10:31 PM ECG Data Attestation: I personally reviewed and interpreted this ECG as follows: Indication: + other (neurological symptoms) Rate (beats per minute): 107 Rhythm: + sinus tachycardia ECG Findings: + Other (no acute ischemic changes, no ectopy, normal QT) Comparison ECG Date: from (09/27/18) Change: no significant change Blood Pressure Blood Pressure Findings: Elevated blood pressure Blood Pressure Disposition: further management by hospitalist [place] Narrative This patient comes in as described above. He was brought in by EMS after having right-sided facial weakness. This started at 5 PM yesterday which at this point is over 24 hours. Based on this, I did not call a stroke alert as he is out of the window for both TPA and vascular intervention. On exam, he appears comfortable he does have facial weakness. He also is unable to close the right eye very well and has weakness in the right forehead. I think clinically is more likely a peripheral nerve palsy such as a Fraser's however when he does a CAT scan he has an apparent lacunar infarct in the left rosa in the right frontal lobe. Based on this, I do think he needs to be admitted/observed for full str nina work-up. His blood pressure was elevated however he has not taken his evening medication and I gave him his normal dose of 100 mg losartan. He has a diabetic. I also ordered aspirin 324 mg chewable. Multiple blood testing was obtained he has no significant electrolyte or metabolic abnormalities. Lyme testing is pending. I have consulted Dr. Heard to see the patient in the ER for these measures Impression & Plan Facial weakness, Lacunar infarction, Type 1 diabetes, Hypertension Discharge Plan Visit Data Chief Complaint: Neuro Symptoms/Deficit ED Provider: Roby Lockwood Discharge Problem: Facial weakness, Lacunar infarction, Type 1 diabetes, Hypertension Patient Disposition: Being Evaluated by Hospitalist Forms Stand Alone Forms: My [facility] Prescriptions Prescriptions: No Action multivitamin Tablet 1 tab PO QAM RF: 0 acetaminophen [Tylenol] 325 mg Tablet 325 mg PO Q6H PRN (Reason: Pain) RF: 0 montelukast 10 mg Tablet 10 mg PO QAM RF: 0 losartan 100 mg Tablet 100 mg PO DAILY RF: 0 (DME) MiniMed 530G Insulin Pump Misc RF: 0 loratadine 10 mg Tablet 10 mg PO DAILY RF: 0 cetirizine 10 mg Tablet 10 mg PO DAILY RF: 0 simvastatin 20 mg Tablet 20 mg PO DAILY RF: 0 amlodipine 10 mg Tablet 10 mg PO DAILY RF: 0 Humalog U-100 Insulin 100 unit/mL Cartridge 0 unit continuous subcutaneous infusion .CONTINUOUS RF: 0 Referrals Referrals: Ziyad Bustos MD [Primary Care Provider] - Discharge Problem: Type 1 diabetes Qualifiers: Diabetes mellitus complication status: without complication Qualified Code(s): E10.9 - Type 1 diabetes mellitus without complications Hypertension Qualifiers: Hypertension type: essential hypertension Qualified Code(s): I10 - Essential (primary) hypertension The scribe's documentation has been prepared under my direction and personally reviewed by me in its entirety. I confirm that the note above accurately reflects all work, treatment, procedures, and medical decision making performed by me.
[2019-06-21] MEDS ORDERED: METOPROLOL TARTRATE 1 MG/ML VIAL IV STA (23:50)
--- NOTE | 2019-06-22 01:44 | History & Physical Report ---
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 Aspirin for secondary stroke prevention Stroke work-up: MRI/MRA brain, TTE, carotid Dopplers Update lipid profile, hemoglobin A1c Pharmacy glycemic control consult DVT prophylaxis. Lovenox subcu Full code Text document was generated using [employer] voice recognition software. It may contain grammatical or spelling errors. Kindly contact undersigned for clarification of any documentation item in question. History of Present Illness Chief Complaint: Right facial weakness Primary Care Provider: Ziyad Bustos MD History obtained from patient, family, and records. Medical history significant for hypertension, hyperlipidemia, DM 1 on insulin pump, history anaplasmosis status post treatment, YANG on CPAP. Recent confinement September 2018 for sepsis secondary to anaplasmosis status post doxycycline Rx. 2 days ago patient noted sudden onset right-sided facial weakness/drooping involving the right side of the face. No headache, no fever, no chills, no recent tick bites. No prior episodes. No chest pain, no S OB. Compliant with home medications. No unusual stress at home. Patient brought to the ER. Patient given aspirin for stroke prophylaxis. SBP initially 200s. Patient given Losartan at the ER. Medical History as above Recent bout of sinusitis status post doxycycline Rx 2 weeks ago. 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 Allergies Allergy/AdvReac Type Severity Reaction Status Date / Time Penicillins Allergy Severe Hives Unverified 06/21/19 23:09 Home Medications Home Medications Medication Instructions Recorded Confirmed Type MiniMed 530G Insulin Pump 09/26/18 09/26/18 History acetaminophen [Tylenol] 325 mg PO Q6H PRN 09/26/18 06/21/19 History losartan 100 mg PO DAILY 09/26/18 06/21/19 History montelukast 10 mg PO QAM 09/26/18 06/21/19 History multivitamin 1 tab PO QAM 09/26/18 06/21/19 History amlodipine 10 mg PO DAILY 06/21/19 06/21/19 History cetirizine 10 mg PO DAILY 06/21/19 06/21/19 History insulin lispro [Humalog U-100 0 unit CONTINUOUS SUBCUTANEOUS 06/21/19 06/21/19 History Insulin] INFUSION .CONTINUOUS loratadine 10 mg PO DAILY 06/21/19 06/21/19 History simvastatin 20 mg PO DAILY 06/21/19 06/21/19 History Past Med/Surg History Medical History Allergic rhinitis (Chronic) HTN (hypertension) (Chronic) Insulin dependent diabetes mellitus (Chronic) Surgical History H/O eye surgery (Chronic) Family History Other Colorectal cancer Coronary heart disease Cisse syndrome Social History Preferred Language: Haitian Communication Ability: Effective Technical Sales Consultant Required: No Beliefs That Will Affect Care: None marital status: Current Living Situation: Spouse Other Information That Helps Us Care for You: No Feels Safe at Home: Yes Safety Concerns: Feels Safe At This Time Smoking Status: Never smoker Second Hand Exposure: No ; Hx Alcohol Use: Yes Alcohol type: beer Alcohol Intake Frequency: Weekly Alcohol Intake Frequency Comment: 3x / week Hx Substance Use: No Review of Systems Review of Systems: As per HPI, all 10 systems reviewed, all other ROS negative Physical Exam Physical Exam: GENERAL: Comfortable, obese, pleasant, no respiratory distress SKIN: Normal color, warm HEENT: [place] palpebral conjunctivae, facial palsy right, partial upper eyelid closure right, dry buccal mucosa NECK : Supple, short neck, no tenderness CHEST : CTA, no tenderness HEART : Tachycardic, no obvious murmurs ABDOMEN: Some distention, nontender EXTREMITIES : No LE swelling/tenderness, no other conspicuous deformities noted NEUROLOGIC : Coherent, no facial asymmetry, no other gross focality Results & Data Vital Signs (Past 12 Hours) Vital Signs Temp Pulse Resp BP Pulse Ox 06/22/19 01:15 97 H 23 163/107 H 97 06/22/19 01:10 96 H 22 98 06/22/19 01:01 98 H 18 97 06/22/19 01:00 96 H 20 159/110 H 98 06/22/19 00:50 97 H 18 97 06/22/19 00:45 96 H 18 169/110 H 97 06/22/19 00:40 95 H 17 97 06/22/19 00:31 94 H 19 97 06/22/19 00:30 96 H 18 172/105 H 96 06/22/19 00:27 105 H 156/88 H 06/22/19 00:20 108 H 18 97 06/22/19 00:15 105 H 19 156/88 H 97 06/22/19 00:10 104 H 16 98 06/22/19 00:01 107 H 23 97 06/22/19 00:00 107 H 21 157/86 H 97 06/21/19 23:56 103 H 21 96 06/21/19 23:55 105 H 18 169/105 H 96 06/21/19 23:45 104 H 18 213/134 H 97 06/21/19 23:40 104 H 25 H 97 06/21/19 23:31 105 H 23 96 06/21/19 23:30 105 H 21 171/94 H 96 06/21/19 23:20 109 H 23 96 06/21/19 23:15 109 H 14 168/100 H 96 06/21/19 23:10 111 H 20 97 06/21/19 23:01 116 H 25 H 98 06/21/19 23:00 116 H 22 217/125 H 96 06/21/19 22:50 110 H 20 97 06/21/19 22:45 113 H 23 201/105 H 95 06/21/19 22:40 108 H 24 97 06/21/19 22:31 113 H 25 H 97 06/21/19 22:30 109 H 24 193/94 H 96 06/21/19 22:28 110 H 20 200/103 H 98 06/21/19 22:01 109 H 25 H 97 06/21/19 22:00 111 H 20 177/78 H 97 06/21/19 21:45 107 H 23 185/90 H 98 06/21/19 21:42 107 H 20 97 06/21/19 21:36 37.1 C 109 H 18 203/99 H 99 06/21/19 21:34 109 H 18 203/98 H 98 Laboratory Results Laboratory Results WBC 9.09 K/uL (4.8-10.8) 06/21/19 22:05 RBC 4.75 M/uL (4.7-6.1) 06/21/19 22:05 Hgb 14.6 g/dL (14.0-18.0) 06/21/19 22:05 Hct 42.0 % (42-52) 06/21/19 22:05 MCV 88.4 fL (80-100) 06/21/19 22:05 MCH 30.7 pg (25-34) 06/21/19 22:05 MCHC 34.8 g/dL (32-36) 06/21/19 22:05 RDW Std Deviation 40.3 fL (36.4-46.3) 06/21/19:05 RDW Coeff of [place]grito 12.5 % (11.5-14.5) 06/21/19 22:05 Plt Count 351 K/uL (130-400) 06/21/19 22:05 MPV 9.5 fL (7.4-10.4) 06/21/19 22:05 Immature Gran % (Auto) 0.8 % 06/21/19 22:05 Neut % (Auto) 65.6 % 06/21/19 22:05 Lymph % (Auto) 22.2 % 06/21/19 22:05 [place] % (Auto) 8.9 % 06/21/19 22:05 Eos % (Auto) 2.2 % 06/21/19 22:05 Baso % (Auto) 0.3 % 06/21/19 22:05 Immature Gran # (Auto) 0.07 K/uL (0.00-0.02) H 06/21/19 22:05 Neut # (Auto) 5.96 K/uL (1.4-6.5) 06/21/19 22:05 Lymph # (Auto) 2.02 K/uL (1.2-3.4) 06/21/19:05 [place] # (Auto) 0.81 K/uL (0.11-0.59) H 06/21/19 22:05 Eos # (Auto) 0.20 K/uL (0-0.5) 06/21/19 22:05 Baso # (Auto) 0.03 K/uL (0-0.2) 06/21/19 22:05 PT 10.0 Seconds (9.0-12.0) 06/21/19 22:05 INR 1.0 (0.9-1.1) 06/21/19 22:05 APTT 25.9 Seconds (21.0-31.0) 06/21/19 22:05 PTT Ratio 1.0 06/21/19 22:05 Sodium 137 mmol/L (136-145) 06/21/19 22:05 Potassium 3.6 mmol/L (3.5-5.1) 06/21/19 22:05 Chloride 106 mmol/L (98-107) 06/21/19 22:05 Carbon Dioxide 23 mmol/L (21-32) 06/21/19 22:05 Anion Gap 8.0 (3-11) 06/21/19 22:05 BUN 22 mg/dl (7-18) H 06/21/19 22:05 Creatinine 1.24 mg/dl (0.6-1.4) 06/21/19 22:05 Est Cr Clr Drug Dosing 85.5 ml/min 06/21/19 22:05 Est GFR ( Amer) 79.7 06/21/19 22:05 Est GFR (Non-Af Amer) 68.8 06/21/19 22:05 BUN/Creatinine Ratio 17.7 (10-20) 06/21/19 22:05 Glucose 188 mg/dl (70-99) H 06/21/19 22:05 Calcium 8.9 mg/dl (8.5-10.1) 06/21/19 22:05 Magnesium 1.9 mg/dl (1.8-2.4) 06/21/19 22:05 Total Bilirubin 0.2 mg/dl (0.2-1) 06/21/19 22:05 AST 21 U/L (15-37) 06/21/19 22:05 ALT 41 U/L (12-78) 06/21/19 22:05 Alkaline Phosphatase 108 U/L (45-117) 06/21/19 22:05 Troponin I < 0.015 ng/ml (0-0.045) 06/21/19 22:05 Total Protein 7.6 gm/dl (6.4-8.2) 06/21/19 22:05 Albumin 3.0 gm/dl (3.4-5.0) L 06/21/19 22:05 Globulin 4.6 gm/dl (2.5-4.0) H 06/21/19 22:05 Albumin/Globulin Ratio 0.7 (0.9-2) L 06/21/19 22:05 TSH 2.730 uIu/ml (0.300-4.500) 06/21/19 22:05 Lyme Disease IgG Ab Negative (Negative) 06/21/19 22:05 Lyme Disease IgM Ab Negative (Negative) 06/21/19 22:[address] head: 1. No acute intracranial hemorrhage, midline shift or acute territorial infarct. 2. Ill-defined 6 mm hypodense focus of the left rosa possibly reflects an age- indeterminate lacunar infarct. Additionally, there is a probable subcentimeter remote lacunar infarct within the periventricular right frontal lobe. EKG as per my interpretation: Rate 110, sinus tachycardia, normal axis, T wave flattening inferior and anterolateral leads
[2019-06-22] MEDS ORDERED: INSULIN LISPRO continuous subcutaneous infusion SCH (02:35)
[2019-06-22] MEDS ORDERED: MoRPHine SULFATE 4 MG/ML 1 ML CARP\\VIAL IV PRN (02:35)
[2019-06-22] MEDS ORDERED: ARTIFICIAL TEARS OP OINT 3.5 GM TUBE OPR SCH (02:35)
[2019-06-22] MEDS ORDERED: TRAMADOL HCL 50 MG TABLET PO PRN (02:35)
[2019-06-22] MEDS ORDERED: PHARMACIST DISCHARGE MED REC CONSULT PRN (02:35)
[2019-06-22] MEDS ORDERED: PROMETHAZINE HCL 12.5 MG in SODIUM CHLORIDE 0.9% 50 ML IV PRN (02:35)
[2019-06-22] MEDS ORDERED: ACETAMINOPHEN 325 MG TAB PO PRN (02:35)
[2019-06-22] MEDS ORDERED: AMLODIPINE BESYLATE 5 MG TAB PO SCH ×2 (02:35→06:00)
[2019-06-22] MEDS ORDERED: LORazepam 0.5 MG/1 ML VIAL IV PRN (02:35)
[2019-06-22] MEDS ORDERED: NORMOSOL-R 1,000 ML IV ONE (02:35)
[2019-06-22] MEDS ORDERED: NITROGLYCERIN SL 0.4 MG/TAB TAB SL PRN (02:35)
[2019-06-22] MEDS ORDERED: PHARMACY GLYCEMIC MGMT CONSULT PRN (02:54)
[2019-06-22] MEDS ORDERED: GLUCOSE 40% GEL 15 GM TUBE PO PRN (03:00)
[2019-06-22] MEDS ORDERED: DEXTROSE 50% 50 ML SYRINGE IV PRN (03:00)
[2019-06-22] MEDS ORDERED: CARBOHYDRATES FOR HYPOGLYCEMIA PO PRN (03:00)
[2019-06-22] MEDS ORDERED: GLUCOSE 10 TABS/TUBE PO PRN (03:00)
[2019-06-22] MEDS ORDERED: GLUCAGON FOR INJ 1 MG VIAL SQ PRN (03:00)
[2019-06-22] MEDS ORDERED: INSULIN HUMAN LISPRO (humaLOG) 100 UNITS/ML VIAL SC PRN (03:00)
[2019-06-22] MEDS: ARTIFICIAL TEARS OPR SCH ×12 (04:42→14:35)
[2019-06-22] MEDS ORDERED: VALACYCLOVIR HCL 500 MG TABLET PO ONE (05:10)
[2019-06-22] MEDS ORDERED: predniSONE 20 MG TAB PO STA (05:10)
[2019-06-22] MEDS ORDERED: PNEUMOCOCCAL ADMINISTRATION CHARGE ONE (06:10)
[2019-06-22] MEDS ORDERED: PNEUMOCOCCAL POLYSACCHARIDES 25 MCG/0.5 ML VIAL/SYR IM ONE (06:10)
[2019-06-22 06:24] LABS: Basophils # (auto) 0.04 K/uL (0-0.2); Basophils % (auto) 0.4 %; Eosinophils # (auto) 0.18 K/uL (0-0.5); Eosinophils % (auto) 1.9 %; Hematocrit (blood only) 42.4 % (42-52); Hemoglobin 14.6 g/dL (14.0-18.0); Immature Granulocytes # (auto) 0.04 K/uL (0.00-0.02); Immature Granulocytes % (auto) 0.4 %; Lymphocytes # (auto) 1.93 K/uL (1.2-3.4); Lymphocytes % (auto) 20.9 %; Mean Corpuscular Hemoglobin 30.5 pg (25-34); Mean Corpuscular Hgb Conc 34.4 g/dL (32-36); Mean Corpuscular Volume 88.7 fL (80-100); Mean Platelet Volume 9.7 fL (7.4-10.4); Monocytes # (auto) 0.62 K/uL (0.11-0.59); Monocytes % (auto) 6.7 %; Neutrophils # (auto) 6.43 K/uL (1.4-6.5); Neutrophils % (auto) 69.7 %; Platelet Count 381 K/uL (130-400); RDW Coefficient of Variation 12.7 % (11.5-14.5); RDW Standard Deviation 41.2 fL (36.4-46.3); Red Blood Count 4.78 M/uL (4.7-6.1); White Blood Count 9.24 K/uL (4.8-10.8)
[2019-06-22 07:01] LABS: Calcium 9.2 mg/dl (8.5-10.1); Creatinine Clr Calc Pharmacy 81.5 ml/min; Est GFR (Non-African American) 65.6; Potassium 4.3 mmol/L (3.5-5.1)
[2019-06-22] MEDS ORDERED: AMPICILLIN/SULBACTAM SOD 3,000 MG in 0.9 % SODIUM CHLORIDE 100 ML IV SCH (08:00)
[2019-06-22] MEDS ORDERED: MULTIVITAMIN TAB PO SCH (09:00)
[2019-06-22] MEDS ORDERED: CETIRIZINE HCL 10 MG TABLET PO SCH (09:00)
[2019-06-22] MEDS ORDERED: ENOXAPARIN INJ 40 MG/0.4 ML SYR SQ SCH (09:00)
[2019-06-22] MEDS ORDERED: ASPIRIN 81 MG ECTAB PO SCH (09:00)
--- NOTE | 2019-06-22 09:42 | Pharmacy Report ---
Glycemic Control Consultation - Date of Service June 22, 2019 - Scope Scope: Glycemic Pharmacist consulted by Dr Covarrubias on 06/21 for glycemic control and to write orders per [facility] inpatient glycemic control protocol - Objective Weight: 107.8 kg Accuchecks BSG (last 24hrs): 06/21/19 06/22/19 06/22/19 22:05 02:30 05:59 Glucose 188 H 242 H POC Glucose 173 H 06/22/19 07:27 Glucose POC Glucose 264 H Laboratory Data (last 24hrs): 06/21/19 06/22/19 22:05 05:59 Potassium 3.6 4.3 D Carbon Dioxide 23 26 Anion Gap 8.0 5.0 Creatinine 1.24 1.29 Est Cr Clr Drug Dosing 85.5 81.5 - Recent Pertinent Medications Outpatient Anti-diabetic Regimen: * Humalog pump * Basal (~50 units/day) * 1.1 units/hr @ 0000 * 1.9 units/hr @ 0400 * 2.3 units/hr @ 0600 * Bolus * 07/02/22 + correction at HS * CF 10 * CR 7 * A1c = 7.9 % 03/15/19 The patient is currently receiving: * Insulin pump per outpatient settings Risk Factors for Insulin Resistance: * Steroids: prednisone 60 mg x 1 this AM * Diet: NPO - Assessment & Plan Assessment & Plan: ASSESSMENT: * 49 y/o male admitted with hypertensive urgency and possible Fraser's palsy. PMH significant for hypertension, hyperlipidemia, DM 1 on insulin pump, history anaplasmosis status post treatment, YANG on CPAP. * Patient preferred to stay on insulin pump during this admission. On a previous admission, looks like BSGs were well controlled on his pump. He did receive a dose of prednisone this AM but is currently NPO so I do not anticipate a significant effect on BSGs without CHO intake. * Now scheduled for discharge today on a prednisone taper PLAN FOR INPATIENT GLYCEMIC CONTROL: Pt is to manage BSGs with insulin pump per outpatient settings. * RN will have patient read and sign agreement CF 006 Insulin Pump Therapy Patient Agreement. * RN will provide and explain form [id number] Flowsheet for Patient * Patient will document their insulin dose given on NS-824 which is kept at the bedside, available to caregivers upon request, and which becomes part of the permanent medical record. If at any time the patients condition evidences that he/she is not able to manage the insulin pump (i.e. frequent hypo/hyperglycemia) Pharmacy will assume glycemic control by discontinuing the pump & managing with SQ basal bolus insulin regimen for the interim. Discharge Recommendations: * A1c = 7.9% on 03/15/19 * Goal A1c < 7% based on age/comorbidities * Patient follows with outpatient Carleen Hutchison. Spoke with him today. He reports he is very comfortable with adjusting his bolus doses while on prednisone. He will also be following up with the [facility] clinic this week. Thank you.
--- NOTE | 2019-06-22 11:27 | Magnetic Resonance Report ---
MR brain wo/w con HISTORY: 49 years-old Male R facial palsy acute strokelike symptoms COMPARISON: Head CT 06/21/2019 TECHNIQUE: Multiplanar multisequence MRI of the brain was obtained both with and without the use of 1 1.0 mL Gadavist FINDINGS: Junior Assistant Manager localizer images demonstrate no gross extracranial abnormality. No restricted diffusion to sugg est acute or subacute infarct. Midline structures including the corpus callosum, optic chiasm, pituit olegario and pineal and unremarkable in sagittal T1 series. No cerebellar tonsillar herniation. Mild degen erative changes of the imaged cervical spine. No acute intracranial hemorrhage, midline shift, abnormal extra-axial collection, hydrocephalus or in tracranial mass. Small remote lacunar infarctions of the periventricular right frontal lobe and left mid rosa. Signal within the brain parenchyma is otherwise unremarkable. There is no abnormal intra-ax ial or extra-axial enhancement. Major vascular flow voids are patent and unremarkable. Moderate left and large right mastoid effusions. Mild mucosal thickening of the paranasal sinuses and nasal turbina arely. The skull, orbits and soft tissues are unremarkable. IMPRESSION: 1. No acute intracranial abnormality, specifically there is no evidence of acute or subacute infarct. 2. Remote lacunar infarctions of the periventricular right frontal lobe and left rosa. 3. No abnormal enhancement. 4. Bilateral mastoid effusions. ACT 112: Negative or not required by law. The above report was generated using voice recognition software. It may contain grammatical, syntax o r spelling errors. Electronically signed by: Monty Weller M.D. 06/22/2019 11:25 AM
--- NOTE | 2019-06-22 11:31 | Magnetic Resonance Report ---
MR angio head wo con HISTORY: 49 years-old Male R facial palsy acute strokelike symptoms COMPARISON: Brain MRI of same day TECHNIQUE: MRA of the head was obtained without use of IV contrast utilizing 3-D [id number] seque ncing with MIP reformats. All measurements were obtained according to NASCET criteria. FINDINGS: The bilateral internal carotid arteries are widely patent and unremarkable. The ophthalmic arteries, bilateral middle and anterior cerebral arteries are patent and within normal limits. Anterior communi cating branch appears normal. The visualized vertebral arteries are patent. The basilar and posterior cerebral arteries are also unremarkable. There is no aneurysm, dissection, high-grade stenosis or pr oximal branch occlusion. IMPRESSION: Unremarkable MRA of the head. No aneurysm, dissection, high-grade stenosis or proximal br anch occlusion. ACT 112: Negative or not required by law. The above report was generated using voice recognition software. It may contain grammatical, syntax o r spelling errors. Electronically signed by: Monty Weller M.D. 06/22/2019 11:29 AM
--- NOTE | 2019-06-22 11:52 | Ultrasound Report ---
US carotid doppler BI CLINICAL HISTORY: 49 years-old Male with cva. Acute strokelike symptoms COMPARISON: MRI brain of same day TECHNIQUE: Multiple real time sonographic images of the carotid bifurcations were obtained assessing arrington scale, color Doppler and spectral wave form appearance FINDINGS: RIGHT CAROTID: The peak systolic velocity within the right ICA [id number] cm/sec. The end diastolic velocity measured 21 cm/sec. The ICA to CCA ratio measured 0.8 which correlates with a stenosis of 0-50%. Mild calcified plaque of the right carotid bulb. LEFT CAROTID: The peak systolic velocity within the left ICA [id number] cm/sec. The end diastolic v elocity measured 20 cm/sec. The ICA to CCA ratio measured 0.7 which correlates with a stenosis of 0-5 0%. Mild atheromatous plaque of the left carotid bulb. There is normal antegrade vertebral flow bilaterally. Blood pressure on the right was measured at 151 /95 and on the left at 145/84 IMPRESSION: 1. No hemodynamically significant stenosis or significant atherosclerotic plaquing. 2. Normal antegrade vertebral flow bilaterally. ACT 112: Negative or not required by law. The above report was generated using voice recognition software. It may contain grammatical, syntax o r spelling errors. Electronically signed by: Monty Weller M.D. 06/22/2019 11:50 AM
--- NOTE | 2019-06-22 12:31 | Communication Note ---
Date of Service: June 22, 2019 Full consultation has been dictated on Mr. Macdonald today but will not be available till later I did see him today reviewed his history performed examination reviewed his imaging studies and went over this case with his attending physician Dr. Pratik Woody is 49 years old who is right-handed past 40 years of insulin-dependent diabetes now treated with insulin pump for about 4 years and he feels real comfortable taking care of himself but did have some difficulty several years ago when he was given steroids for pulmonary issue and had some problems getting his glucose back under control. Otherwise he is done well but developed a right otitis media was placed on doxycycline and completed a 10-day course on Sunday and then noted the onset of weakness of the right side of his face which persisted and he was brought to the emergency room last night. Findings were most consistent with a mild Fraser's palsy with diminished eye blink mild weakness of the forehead moderate to moderately severe weakness of the lower facial muscles but without any hearing loss, loudness recruitment, pain, or loss of taste. CT scan showed evidence for what was probably an old lacunar infarct involving the right frontal lobe in the left rosa and this is been subsequently confirmed by MRI but the scan also shows evidence for bilateral mastoid effusions worse on the right. I do not see evidence that this enhances with contrast but the presence of these coupled with the right Fraser's palsy makes me suspicious there may be some [id number] relationship. He is anxious to be discharged is afebrile does not have any other medical problems besides diabetes at present, MRA of the intracranial vessels is normal and a duplex of the carotids is normal so I do not think we really have to be concerned about a vascular event but because of the presence of lacunar infarcts I am suggesting he start taking a baby aspirin per day He is can be discharged on a short course of steroids i.e. 60 mg for 2 days 40 mg for 2 days 20 mg for 2 days 10 for 2 days and stop we have toyed with the idea of acyclovir but this is becoming less and less standard practice and I think it be wiser to simply place him on some antibiotic coverage for the possible presence of a chronic mastoid infection and Dr. Pastrana is going to start him on Augmentin and he needs to see ear nose and throat in follow-up He is seeing ophthalmology now in anticipation of a cataract procedure is already been placed on liquid tears so he can follow with them regarding corneal abrasion which I do not think is going to be a major issue Neurology should see him in about 6 weeks time I went over my recommendations with the family and with Dr. pastrana and a full consultation will be on the chart within the next 24 hours Blake Cortez MD
--- NOTE | 2019-06-22 12:50 | Electrocardiogram Report ---
Test Reason : Blood Pressure : / mmHG Vent. Rate : 107 BPM Atrial Rate : 107 BPM P-R Int : 142 ms QRS Dur : 082 ms QT Int : 324 ms P-R-T Axes : 053 053 026 degrees QTc Int : 432 ms Sinus tachycardia Nonspecific T wave abnormality When compared with ECG of 27-SEP-2018 06:40, Nonspecific T wave abnormality now evident in Anterior leads Confirmed by Juan Jose Montes ([id number]) on 06/22/2019 12:50:04 PM Referred By: REFERRED SELF Confirmed By:Juan Jose Montes
[2019-06-22] MEDS ORDERED: DOXYCYCLINE HYCLATE 100 MG CAP PO SCH (13:45)
--- NOTE | 2019-06-22 14:06 | Consultation Report ---
DATE OF CONSULTATION: 06/22/[address] Zak Christie. The patient is a 49-year-old man who was admitted to the hospital after noting a right lower facial palsy with diminished eye blink 2 days ago following a course of oral doxycycline for I assume an otitis media on the right. 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 Exam is certainly consistent with a peripheral sevent nerve palsy with weakness of the lower face of modest degree, diminished eye blink but with retention of eye closure, slight weakness of the right frontalis, no loudness recruitment, no loss of sensation, no other cranial neuropathies and otherwise normal neurologic examination with the exception of some subtle evidence for some polyneuropathy manifested by areflexia at the ankles and minimal sensory loss. This is a Right peripheral seventth nerve palsy likely in the facial canal distal to the stapedius nerve and the branch supplying taste possibly idiopathic, but in the presence of a resolving ear infection with mastoid effusions, one can never be certain there is not a compression or infiltration of the nerve by the mastoiditis and we are going to treat this with a short course of steroids, hold on acyclovir, which was suggested as I think the odds of this being a post shingles issue is slim and we are going to put him on some antibiotics allowing for his penicillin allergy and havean outpatient ear, nose and throat evaluation. Neurology is going to see him in followup in about 6 weeks. HISTORY OF PRESENT ILLNESS: The patient is 49 years old, has right otitis media or symptoms thereof with some ear pain, was treated with doxycycline which stopped on Sunday and then noted the onset of painless weakness of the lower face with diminished eye blink on the right. Actually this was noted by his and the patient was unaware of it until he looked in the mirror. He waited a day, thought it was perhaps improving, but because of its persistence, came into the hospital, had a CT scan showing some possible infarctions of indeterminate age, was hypertensive and was admitted to the hospital for control of hypertension, MRI scan, MRA, duplex of the carotids, and Neurologic consultation which I am providing. 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 HOME MEDICATIONS: Include MiniMed 530G insulin pump, acetaminophen, losartan, Singulair, multivitamins, amlodipine, cetirizine as needed, insulin subcutaneously as per patient for better diabetic control, loratadine and simvastatin. ALLERGIES: HE HAS ALLERGIES TO PENICILLINS. PAST MEDICAL AND SURGICAL HISTORY: Reveals rhinitis, hypertension, insulin-dependent diabetes and surgically he really has had no major procedures and is scheduled for some cataract surgery at some point in the future. FAMILY HISTORY: Reveals colorectal cancer, coronary artery disease and Cisse syndrome. 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 REVIEW OF SYSTEMS: Unremarkable revealing no significant change in weight, fevers, sweats, chills. 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 He has had no other issues referable to head, eyes, ears, nose and throat; cardiovascular; pulmonary; gastrointestinal; genitourinary; musculoskeletal; dermatologic or hematologic systems other than the diabetes and is unaware of any history neurologically that would have been consistent with a small lacunar infarct in the right frontal lobe and left rosa. PHYSICAL EXAMINATION: VITAL SIGNS On exam, the blood pressure was 163/107, coming down nicely to 157/86; pulse rate was in the low 100s; respirations 16. He was afebrile. GENERAL: He was moderately over nourished, awake, alert, oriented in 3 spheres with no obvious distress. HEENT: Normal examination of head, eyes, ears, nose and throat with the exception of the lower facial palsy and diminished eye blink on the right. No bruits were heard over the carotids. Thyroid was normal size and consistency. There is no adenopathy. LUNGS: Clear. HEART: Had a regular rhythm. EXTREMITIES: Free of edema. There were no arthritic deformities. NEUROLOGIC: He was awake, alert, oriented in 3 spheres with a right peripheral 7th nerve palsy involving the lower facial muscles more than the upper and sparing the nerve to the tympanic muscle as he had no loudness recruitment and there was no weakness of the retroauricular muscles or much in the way of the platysma. Muscle mastication were normal. Facial sensation was normal. Tongue protrudes in the midline. Speech was clear. Eye movements were normal. Fundi were poorly seen. Visual alvarez were full. Gait, station and coordination was normal without tremor, tics, choreiform activity, drift or pronation sign. Reflexes were absent at the ankles, reduced at the knees. Toes are downgoing. No Horace signs are seen. Strength testing was normal and sensation revealed minor reduction in the quality of vibratory sense over the distal lower extremities and normal position sense, normal light touch. As noted on the initial components of the consultation, I believe this is peripheral 7th nerve palsy, possibly secondary to mastoid infection. We are going to treat him with steroids. He does have a PENICILLIN ALLERGY, so Augmentin may not be a good choice of antibiotics and Dr. Christie is going to review this. We are going to see him back in followup in 6 weeks' time and he does need to be at least seen by Ear, Nose and Throat with their recommendations for antibiotic therapy based on their review of the films and consultation with examination. As far as I can tell, this man is going to be discharged today with followups as outlined above. JACKIE
--- NOTE | 2019-06-22 14:18 | Discharge Summary ---
Date of Service June 22, 2019 Admission HPI Per Admitting Provider History obtained from patient, family, and records. Medical history significant for hypertension, hyperlipidemia, DM 1 on insulin pump, history anaplasmosis status post treatment, YANG on CPAP. Recent confinement September 2018 for sepsis secondary to anaplasmosis status post doxycycline Rx. 2 days ago patient noted sudden onset right-sided facial weakness/drooping involving the right side of the face. No headache, no fever, no chills, no recent tick bites. No prior episodes. No chest pain, no S OB. Compliant with home medications. No unusual stress at home. Patient brought to the ER. Patient given aspirin for stroke prophylaxis. SBP initially 200s. Patient given Losartan at the ER. Medical History as above Recent bout of sinusitis status post doxycycline Rx 2 weeks ago. 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 Discharge Data Allergies Allergy/AdvReac Type Severity Reaction Status Date / Time Penicillins Allergy Severe Hives Unverified 06/21/19 23:09 Consultations 06/21/19 23:07 ED Decision to Admit Stat 06/22/19 02:35 Consult Case Management - Discharge Planning Routine Consult Neurology Routine 06/22/19 12:29 Burn CD for patient Routine Ordered Studies 06/21/19 21:52 CT head/brain wo con Stat 06/22/19 02:35 MR angio head wo con Routine MR brain wo/w con Routine US carotid doppler BI Routine Discharge Plan Discharge Items Patient Disposition: Home - Self-Care Reason For Visit: CVA ON CT 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 You will need to be seen by ENT physician, as soon as possible. In the meantime, take prednisone (steroid) and antibiotics prescribed for you. You will also need to follow-up closely with endocrinology, regarding your diabetes, and steroid use. CD with CT and MRI images will be provided for you on discharge. Make sure to bring this CD to ENT physician. Please bring this paperwork to your primary care doctor, and/or ENT doctor. Given that we found that you have a history of old strokes, it is recommended that you take aspirin 81 mg daily. Pending Studies at Discharge: No Stand-Alone Forms: My [facility], Smoking Cessation Medications and DC Order Prescriptions: New doxycycline hyclate 100 mg Capsule 100 mg PO BID 7 Days Qty: 14 RF: 0 aspirin 81 mg Tablet,Delayed Release (Dr/Ec) 81 mg PO QAM 30 Days Qty: 30 RF: 0 ciprofloxacin HCl 500 mg tablet 500 mg PO BID 7 Days Qty: 14 RF: 0 prednisone 20 mg tablet 20 mg PO UD Qty: 13 RF: 0 Continued multivitamin Tablet 1 tab PO QAM RF: 0 acetaminophen [Tylenol] 325 mg Tablet 325 mg PO Q6H PRN (Reason: Pain) RF: 0 montelukast 10 mg Tablet 10 mg PO QAM RF: 0 losartan 100 mg Tablet 100 mg PO DAILY RF: 0 (DME) MiniMed 530G Insulin Pump Misc RF: 0 loratadine 10 mg Tablet 10 mg PO DAILY RF: 0 cetirizine 10 mg Tablet 10 mg PO DAILY RF: 0 simvastatin 20 mg Tablet 20 mg PO DAILY RF: 0 amlodipine 10 mg Tablet 10 mg PO DAILY RF: 0 Humalog U-100 Insulin 100 unit/mL Cartridge 0 unit continuous subcutaneous infusion .CONTINUOUS RF: 0 Discharge Orders: Discharge Order (Routine); Ordered 06/22/19 Ordered By: Zak Christie Admission Data Admit Date/Time: 06/22/19 01:47 Attending Provider: Zak Christie Admit Provider: Petr Covarrubias Primary Care Provider: Ziyad Bustos Other Providers: Petr Covarrubias ; Blake Crotez
[2019-06-22] MEDS ORDERED: LOSARTAN POTASSIUM 50 MG TAB PO SCH (21:00)
[2019-06-22] MEDS ORDERED: MONTELUKAST SODIUM 10 MG TABLET PO SCH (21:00)
[2019-06-22] MEDS ORDERED: SIMVASTATIN 20 MG TAB PO SCH (21:00)
[2019-06-23 06:16] LABS: Estimated Average Glucose 174 mg/dl; Hemoglobin A1C 7.7 % (4.5-5.6)
== END 2019-06-22 15:35 | disposition home or self-care (01) ==
LOC: ED 21:30 → INTOOBSV 06-22 01:47 → 2N 06-22 01:47